=== PATIENT | male | born 1940 | race Caucasian/White ===

== ENCOUNTER 2021-08-15 08:07 | Inpatient (IN) | payer MEDICARE, BC ==
[~2021-08-15] VITALS: Ht 180.3 cm; Wt 96.2 kg
[2021-08-15] MEDS ORDERED: TAMSULOSIN (08:30)
[2021-08-15] MEDS ORDERED: PRAVASTATIN SOD20 MG PO (08:30)
[2021-08-15] MEDS ORDERED: INDERAL20 MG PO (08:30)
[2021-08-15] MEDS ORDERED: FUROSEMIDE20 MG (08:30)
[2021-08-15] MEDS ORDERED: AMIODARONE HCL200 MG PO (08:30)
[2021-08-15] MEDS ORDERED: FLUTICASONE PRO16 GM (08:30)
[2021-08-15] MEDS ORDERED: SPIRONOLACTONE25 MG PO (08:30)
[2021-08-15 08:46] LABS: BASOPHILS # (AUTO) 0.1 (0.0-0.1); BASOPHILS % 0.8 % (0.0-1.0); EOSINOPHILS # (AUTO) 0.2 (0.0-0.4); EOSINOPHILS % 3.2 % (0.0-6.0); HEMATOCRIT 23.5 % (38.2-49.6); LYMPHOCYTES % 15.9 % (18.0-39.1); MEAN CORPUSCULAR HEMOGLOBIN 23.7 pg (28-32); MEAN CORPUSCULAR HGB CONC 28.1 g/dL (31-35); MEAN CORPUSCULAR VOLUME 84.5 fL (81-99); MONOCYTES # (AUTO) 0.8 (0.2-0.8); MONOCYTES % 11.6 % (4.4-11.3); NEUTROPHILS # (AUTO) 4.5 (2.1-6.9); NEUTROPHILS % 68.2 % (38.7-80.0); PLATELET COUNT 332 x10e3/uL (140-360); RED BLOOD COUNT 2.78 x10e6/uL (4.3-5.7); RED CELL DISTRIBUTION WIDTH 15.9 % (11.7-14.4)
[2021-08-15 08:52] LABS: HEMOGLOBIN 6.6 g/dL (14.0-18.0)
[2021-08-15 08:58] LABS: INR 1.05; PROTHROMBIN TIME 14.5 seconds (11.9-14.5)
[2021-08-15 08:59] LABS: PARTIAL THROMBOPLASTIN TIME 31.5 seconds (23.8-35.5)
[2021-08-15] MEDS ORDERED: SODIUM CHLORIDE 0.9% 250ML 250 ML IV ONE (09:00)
[2021-08-15 09:05] LABS: ALBUMIN 3.7 g/dL (3.5-5.0); ALBUMIN/GLOBULIN RATIO 1.1 (0.8-2.0); ANION GAP 15.4 mmol/L (8-16); CALCIUM 9.3 mg/dL (8.4-10.2); CREATININE, SERUM 2.3 mg/dL (0.72-1.25); POTASSIUM 4.4 mmol/L (3.5-5.1)
[2021-08-15 09:28] LABS: CREATINE KINASE MB 1.4 ng/mL (0-5.0)
[2021-08-15] MEDS ORDERED: ONDANSETRON HCL INJ 2MG/ML 2ML 2 MG/ML VIAL IV PRN (09:45)
[2021-08-15 10:00] LABS: BACTERIA,URINE FEW /HPF; CLARITY,URINE CLEAR (CLEAR); COLOR,URINE YELLOW (YELLOW); EPITHELIAL CELLS,URINE FEW /LPF; KETONES,URINE NEGATIVE (NEGATIVE); LEUKOCYTE ESTERASE ,URINE TRACE (NEGATIVE); NITRITE,URINE NEGATIVE (NEGATIVE); PROTEIN,URINE DIPSTICK NEGATIVE (NEGATIVE); RBC,URINE 0-5 /HPF (0-5); URINE UROBILINOGEN 0.2 mg/dL (0.2 - 1)
[2021-08-15] MEDS ORDERED: FUROSEMIDE INJ 10 MG/ML 2 ML VIAL IV PRN (11:00)
[2021-08-15 12:25] VITALS: BP 114/55
[2021-08-15] MEDS ORDERED: XARELTO10 MG PO (12:55)
[2021-08-15] MEDS ORDERED: PRILOSEC OTC20 MG PO (12:55)
[2021-08-15] MEDS ORDERED: ANORO ELLIPTA1 EACH IH (12:55)
[2021-08-15] MEDS ORDERED: GLUCOSAMINE1000 MG PO (12:55)
[2021-08-15] MEDS ORDERED: COQ-10100 MG PO (12:55)
[2021-08-15] MEDS ORDERED: VITAMIN B-121000 MCG PO (12:58)
[2021-08-15] MEDS ORDERED: VITAMIN D3 COM1 EACH PO (12:58)
[2021-08-15] MEDS ORDERED: FISH OIL 1,2001 EACH PO (12:58)
[2021-08-15] MEDS ORDERED: FLAXSEED OIL1000 MG PO (12:58)
[2021-08-15] MEDS ORDERED: VITAMIN C1000 MG PO (12:58)
[2021-08-15 13:34] LABS: FERRITIN 14.93 ng/mL (21.81-274.66)
[2021-08-15 15:43] VITALS: BP 122/65
[2021-08-15 17:53] LABS: HEMATOCRIT 25.7 % (38.2-49.6); HEMOGLOBIN 7.5 g/dL (14.0-18.0)
[2021-08-15 18:15] LABS: CREATINE KINASE MB 1.4 ng/mL (0-5.0)
[2021-08-15 20:00] VITALS: BP 124/63
[2021-08-15 20:34] VITALS: BP 124/63
[2021-08-16] VITALS (7 sets, daily range): BP systolic 120–141; BP diastolic 57–66
[2021-08-16 02:01] LABS: CREATINE KINASE MB 1.3 ng/mL (0-5.0)
[2021-08-16 05:34] LABS: BASOPHILS % 0.6 % (0.0-1.0); EOSINOPHILS # (AUTO) 0.2 (0.0-0.4); EOSINOPHILS % 3.4 % (0.0-6.0); HEMATOCRIT 24.7 % (38.2-49.6); HEMOGLOBIN 7.3 g/dL (14.0-18.0); LYMPHOCYTES # (AUTO) 1.1 (1.0-3.2); LYMPHOCYTES % 16.6 % (18.0-39.1); MEAN CORPUSCULAR HEMOGLOBIN 24.4 pg (28-32); MEAN CORPUSCULAR HGB CONC 29.6 g/dL (31-35); MEAN CORPUSCULAR VOLUME 82.6 fL (81-99); MONOCYTES # (AUTO) 0.9 (0.2-0.8); MONOCYTES % 13.7 % (4.4-11.3); NEUTROPHILS # (AUTO) 4.5 (2.1-6.9); NEUTROPHILS % 65.4 % (38.7-80.0); PLATELET COUNT 263 x10e3/uL (140-360); RED BLOOD COUNT 2.99 x10e6/uL (4.3-5.7); RED CELL DISTRIBUTION WIDTH 16.1 % (11.7-14.4)
[2021-08-16 06:12] LABS: ALBUMIN 3.1 g/dL (3.5-5.0); ANION GAP 7.1 mmol/L (8-16); CALCIUM 8.7 mg/dL (8.4-10.2); CREATININE, SERUM 2.07 mg/dL (0.72-1.25); POTASSIUM 4.1 mmol/L (3.5-5.1)
[2021-08-16] MEDS: CYANOCOBALAMIN INJ 1,000 MCG/ML VIAL IM SCH (09:07)
[2021-08-16] MEDS ORDERED: HEPARIN SOD (PORCINE) 1000 UNIT/ML SDV ONE (09:20)
[2021-08-16] MEDS: IRON SUCROSE 100 MG in SODIUM CHLORIDE 0.9% 100 ML 100 ML IV SCH (09:20)
[2021-08-16] MEDS ORDERED: SODIUM CHLORIDE 0.9% 250ML 250 ML ONE (09:22)
[2021-08-16 17:22] LABS: HEMATOCRIT 29.3 % (38.2-49.6); HEMOGLOBIN 8.4 g/dL (14.0-18.0)
[2021-08-17] VITALS (9 sets, daily range): BP systolic 124–153; BP diastolic 56–82
[2021-08-17] MEDS ORDERED: FLOMAX0.4 MG PO (04:47)
[2021-08-17 06:10] LABS: BASOPHILS # (AUTO) 0.1 (0.0-0.1); BASOPHILS % 0.9 % (0.0-1.0); EOSINOPHILS # (AUTO) 0.2 (0.0-0.4); EOSINOPHILS % 3.8 % (0.0-6.0); HEMATOCRIT 26.2 % (38.2-49.6); HEMOGLOBIN 7.6 g/dL (14.0-18.0); LYMPHOCYTES % 15.4 % (18.0-39.1); MEAN CORPUSCULAR HEMOGLOBIN 24.4 pg (28-32); MONOCYTES # (AUTO) 0.9 (0.2-0.8); MONOCYTES % 13.8 % (4.4-11.3); NEUTROPHILS # (AUTO) 4.2 (2.1-6.9); NEUTROPHILS % 65.8 % (38.7-80.0); PLATELET COUNT 267 x10e3/uL (140-360); RED BLOOD COUNT 3.12 x10e6/uL (4.3-5.7); RED CELL DISTRIBUTION WIDTH 16.9 % (11.7-14.4)
[2021-08-17 06:51] LABS: ANION GAP 6.4 mmol/L (8-16); CALCIUM 8.7 mg/dL (8.4-10.2); CREATININE, SERUM 1.71 mg/dL (0.72-1.25); POTASSIUM 4.4 mmol/L (3.5-5.1)
[2021-08-17] MEDS: CYANOCOBALAMIN INJ 1,000 MCG/ML VIAL IM SCH (09:10)
[2021-08-17] MEDS: IRON SUCROSE 100 MG in SODIUM CHLORIDE 0.9% 100 ML 100 ML IV SCH (09:10)
[2021-08-17] MEDS ORDERED: HEMOCYTE PLUS1 EACH PO (09:50)
[2021-08-17] MEDS: AMIODARONE HCL 200 MG TAB PO SCH (10:18)
[2021-08-17] MEDS: DOCUSATE SODIUM 100 MG CAP PO SCH (10:18)
[2021-08-17] MEDS: SPIRONOLACTONE 25 MG TAB PO SCH (10:18)
[2021-08-17] MEDS: SENNOSIDES 8.6 MG TAB PO SCH (10:18)
[2021-08-17] MEDS: FUROSEMIDE 20 MG TAB PO SCH (10:18)
[2021-08-17] MEDS ORDERED: ONDANSETRON HCL 4 MG ORAL DISINTEGRATING TAB PO PRN (14:45)
[2021-08-17 18:04] LABS: HEMATOCRIT 32.5 % (38.2-49.6); HEMOGLOBIN 9.1 g/dL (14.0-18.0)
[2021-08-17] MEDS ORDERED: TAMSULOSIN HCL 0.4 MG CAP PO SCH (21:00)
[2021-08-17] MEDS ORDERED: PRAVASTATIN 20 MG TAB PO SCH (21:00)
[2021-08-18 05:23] LABS: BASOPHILS # (AUTO) 0.1 (0.0-0.1); EOSINOPHILS # (AUTO) 0.3 (0.0-0.4); EOSINOPHILS % 3.6 % (0.0-6.0); HEMATOCRIT 26.8 % (38.2-49.6); HEMOGLOBIN 7.8 g/dL (14.0-18.0); LYMPHOCYTES # (AUTO) 1.1 (1.0-3.2); LYMPHOCYTES % 13.9 % (18.0-39.1); MEAN CORPUSCULAR HEMOGLOBIN 24.5 pg (28-32); MEAN CORPUSCULAR HGB CONC 29.1 g/dL (31-35); MONOCYTES # (AUTO) 0.9 (0.2-0.8); MONOCYTES % 11.5 % (4.4-11.3); NEUTROPHILS # (AUTO) 5.7 (2.1-6.9); NEUTROPHILS % 69.6 % (38.7-80.0); PLATELET COUNT 273 x10e3/uL (140-360); RED BLOOD COUNT 3.19 x10e6/uL (4.3-5.7); RED CELL DISTRIBUTION WIDTH 17.2 % (11.7-14.4)
[2021-08-18 05:36] LABS: ANION GAP 9.2 mmol/L (8-16); CALCIUM 9.2 mg/dL (8.4-10.2); CREATININE, SERUM 1.84 mg/dL (0.72-1.25); POTASSIUM 4.2 mmol/L (3.5-5.1)
[2021-08-18 05:56] VITALS: BP 129/60
[2021-08-18 06:38] VITALS: BP 129/60
[2021-08-18 08:00] VITALS: BP 129/60
[2021-08-18] MEDS: IRON SUCROSE 100 MG in SODIUM CHLORIDE 0.9% 100 ML 100 ML IV SCH (09:00)
[2021-08-18] MEDS: CYANOCOBALAMIN INJ 1,000 MCG/ML VIAL IM SCH (09:00)
[2021-08-18 09:05] VITALS: BP 124/66
[2021-08-18] MEDS ORDERED: IOPAMIDOL 300MG/ML 100 ML INFUS..BTL IV ONE (11:02)
[2021-08-18] MEDS ORDERED: SODIUM CHLORIDE 0.9% 250ML 250 ML ONE (11:02)
[2021-08-18] MEDS ORDERED: LIDOCAINE HCL 1% LOCAL INJ 20 ML VIAL ONE (11:02)
[2021-08-18] MEDS ORDERED: MIDAZOLAM HCL 2 MG/2 ML VIAL ONE (11:34)
[2021-08-18] MEDS ORDERED: FENTANYL CITRATE/PF 100MCG/2 ML INJ ONE (11:34)
[2021-08-18 11:44] VITALS: BP 146/75
[2021-08-18 13:51] VITALS: BP 138/66
[2021-08-18] MEDS: SENNOSIDES 8.6 MG TAB PO SCH (15:30)
[2021-08-18] MEDS: FUROSEMIDE 20 MG TAB PO SCH (15:30)
[2021-08-18] MEDS: AMIODARONE HCL 200 MG TAB PO SCH (15:30)
[2021-08-18] MEDS: SPIRONOLACTONE 25 MG TAB PO SCH (15:30)
[2021-08-18] MEDS: DOCUSATE SODIUM 100 MG CAP PO SCH (15:30)
[2021-08-23] MEDS ORDERED: DEXAMETHASONE4 MG PO (18:05)
[2021-08-23] MEDS ORDERED: LEVOFLOXACIN250 MG PO (18:05)
== END 2021-08-18 15:35 | disposition home or self-care (01) | DRG 378 ==
LOC: ER 08:19 → ERHOLD 09:44 → MED/SURG2 14:05
PROVIDERS: ADMIT Internal Medicine; ATTEND Internal Medicine
PROC: 30233N1 Transfusion of Nonautologous Red Blood Cells into Peripheral Vein, Percutaneous Approach (ICD-10-PCS; 2021-08-15)
PROC: 06H03DZ Insertion of Intraluminal Device into Inferior Vena Cava, Percutaneous Approach (ICD-10-PCS; principal; 2021-08-18)
DX: K92.2 Gastrointestinal hemorrhage, unspecified (principal); D68.59 Other primary thrombophilia; I13.0 Hypertensive heart and chronic kidney disease with heart failure and stage 1 through stage 4 chronic kidney disease, or unspecified chronic kidney disease; I82.531 Chronic embolism and thrombosis of right popliteal vein; I82.511 Chronic embolism and thrombosis of right femoral vein; D50.9 Iron deficiency anemia, unspecified; I48.0 Paroxysmal atrial fibrillation; Z79.01 Long term (current) use of anticoagulants; J44.9 Chronic obstructive pulmonary disease, unspecified; I50.9 Heart failure, unspecified; N40.0 Benign prostatic hyperplasia without lower urinary tract symptoms; N18.32 Chronic kidney disease, stage 3b; K21.9 Gastro-esophageal reflux disease without esophagitis; E78.5 Hyperlipidemia, unspecified; Z86.718 Personal history of other venous thrombosis and embolism; J84.10 Pulmonary fibrosis, unspecified; R19.5 Other fecal abnormalities; I25.10 Atherosclerotic heart disease of native coronary artery without angina pectoris; Z95.810 Presence of automatic (implantable) cardiac defibrillator; G47.30 Sleep apnea, unspecified
CPT/HCPCS: 36415; 37191; 71045; 74470; 76937; 77002; 78278; 80048; 80053; 81001; 82270; 82550; 82553; 82607; 82728; 82746; 83540; 84466; 84484; 85014; 85018; 85025; 85045; 85610; 85730; 86850; 86900; 86920; 93970; 94799; 99152; 99153; 99284; A9512; J1644; J1756; J1940; J2001; J2250; J3010; J3420; J7050; P9016; Q9967; U0002

== ENCOUNTER 2021-08-19 15:17 | Inpatient (IN) | payer MEDICARE, BC ==
[~2021-08-19] VITALS: Ht 180.3 cm; Wt 86.2 kg
[~2021-08-19 15:17] MED LIST: AMIODARONE HCL200 MG PO; ANORO ELLIPTA1 EACH IH; COQ-10100 MG PO; FISH OIL 1,2001 EACH PO; FLAXSEED OIL1000 MG PO; FLOMAX0.4 MG PO; FLUTICASONE PRO16 GM; FUROSEMIDE20 MG; GLUCOSAMINE1000 MG PO; HEMOCYTE PLUS1 EACH PO; INDERAL20 MG PO; PRAVASTATIN SOD20 MG PO; PRILOSEC OTC20 MG PO; SPIRONOLACTONE25 MG PO; TAMSULOSIN; VITAMIN B-121000 MCG PO; VITAMIN C1000 MG PO; VITAMIN D3 COM1 EACH PO; XARELTO10 MG PO
[2021-08-19 16:19] LABS: BASOPHILS % 0.5 % (0.0-1.0); EOSINOPHILS # (AUTO) 0.1 (0.0-0.4); EOSINOPHILS % 1.5 % (0.0-6.0); HEMATOCRIT 29.9 % (38.2-49.6); HEMOGLOBIN 8.8 g/dL (14.0-18.0); LYMPHOCYTES # (AUTO) 0.4 (1.0-3.2); LYMPHOCYTES % 4.5 % (18.0-39.1); MEAN CORPUSCULAR HEMOGLOBIN 24.6 pg (28-32); MEAN CORPUSCULAR HGB CONC 29.4 g/dL (31-35); MEAN CORPUSCULAR VOLUME 83.5 fL (81-99); MONOCYTES # (AUTO) 1.4 (0.2-0.8); MONOCYTES % 16.3 % (4.4-11.3); NEUTROPHILS # (AUTO) 6.5 (2.1-6.9); NEUTROPHILS % 76.5 % (38.7-80.0); PLATELET COUNT 229 x10e3/uL (140-360); RED BLOOD COUNT 3.58 x10e6/uL (4.3-5.7); RED CELL DISTRIBUTION WIDTH 18.3 % (11.7-14.4)
[2021-08-19 16:25] LABS: INR 1.09; PARTIAL THROMBOPLASTIN TIME 31.3 seconds (23.8-35.5); PROTHROMBIN TIME 14.9 seconds (11.9-14.5)
[2021-08-19 16:33] LABS: CLARITY,URINE HAZY (CLEAR); COLOR,URINE YELLOW (YELLOW); KETONES,URINE NEGATIVE (NEGATIVE); LEUKOCYTE ESTERASE ,URINE TRACE (NEGATIVE); NITRITE,URINE NEGATIVE (NEGATIVE); PROTEIN,URINE DIPSTICK NEGATIVE (NEGATIVE); URINE UROBILINOGEN 0.2 mg/dL (0.2 - 1)
[2021-08-19 16:34] LABS: BACTERIA,URINE FEW /HPF; EPITHELIAL CELLS,URINE FEW /LPF; RBC,URINE 0-5 /HPF (0-5)
[2021-08-19 16:35] LABS: ALBUMIN 3.6 g/dL (3.5-5.0); ALBUMIN/GLOBULIN RATIO 0.9 (0.8-2.0); ANION GAP 13.1 mmol/L (8-16); CALCIUM 9.3 mg/dL (8.4-10.2); CREATININE, SERUM 1.94 mg/dL (0.72-1.25)
[2021-08-19 16:43] LABS: CREATINE KINASE MB 1.6 ng/mL (0-5.0)
[2021-08-19 17:22] LABS: POTASSIUM 5.1 mmol/L (3.5-5.1)
[2021-08-19 17:45] LABS: LYMPHOCYTES % (MANUAL) 5 % (19-48); MONOCYTES % (MANUAL) 17 % (3.4-9.0); NEUTROPHILS % (MANUAL) 78 % (40-74); PLATELET ESTIMATE ADEQUATE; PLATELET MORPHOLOGY COMMENT NORMAL
[2021-08-19] MEDS ORDERED: FUROSEMIDE INJ 10 MG/ML 4 ML VIAL IV ONE (18:15)
[2021-08-19] MEDS ORDERED: ONDANSETRON HCL INJ 2MG/ML 2ML 2 MG/ML VIAL IV PRN (18:45)
[2021-08-19] MEDS ORDERED: ACETAMINOPHEN 325 MG TAB PO PRN (19:15)
[2021-08-19 20:00] VITALS: BP 138/70
[2021-08-19 20:10] VITALS: BP 138/70
[2021-08-19] MEDS: TAMSULOSIN HCL 0.4 MG CAP PO SCH (20:50)
[2021-08-19] MEDS: DEXAMETHASONE SOD PHOS 10 MG/1 ML VIAL IV SCH (20:50)
[2021-08-19 21:44] VITALS: BP 138/70
[2021-08-19 23:58] VITALS: BP 138/70
[2021-08-20] VITALS (14 sets, daily range): BP systolic 114–152; BP diastolic 62–97
[2021-08-20 05:39] LABS: BASOPHILS % 0.3 % (0.0-1.0); HEMATOCRIT 28.3 % (38.2-49.6); HEMOGLOBIN 8.3 g/dL (14.0-18.0); LYMPHOCYTES # (AUTO) 0.3 (1.0-3.2); LYMPHOCYTES % 8.1 % (18.0-39.1); MEAN CORPUSCULAR HEMOGLOBIN 24.3 pg (28-32); MEAN CORPUSCULAR HGB CONC 29.3 g/dL (31-35); MONOCYTES # (AUTO) 0.1 (0.2-0.8); MONOCYTES % 2.4 % (4.4-11.3); NEUTROPHILS # (AUTO) 3.3 (2.1-6.9); NEUTROPHILS % 88.4 % (38.7-80.0); PLATELET COUNT 187 x10e3/uL (140-360); RED BLOOD COUNT 3.41 x10e6/uL (4.3-5.7); RED CELL DISTRIBUTION WIDTH 18.5 % (11.7-14.4)
[2021-08-20 05:58] LABS: ALBUMIN 3.3 g/dL (3.5-5.0); ALBUMIN/GLOBULIN RATIO 0.9 (0.8-2.0); ANION GAP 10.8 mmol/L (8-16); CREATININE, SERUM 2.03 mg/dL (0.72-1.25); POTASSIUM 4.8 mmol/L (3.5-5.1)
[2021-08-20] MEDS ORDERED: SODIUM CHLORIDE 0.9% 250ML 250 ML ONE (08:32)
[2021-08-20] MEDS: CEFEPIME 1 GM in SODIUM CHLORIDE 0.9% 50ML 50 ML IV SCH (08:57)
[2021-08-20] MEDS ORDERED: CYANOCOBALAMIN 100 MCG TAB PO SCH (09:00)
[2021-08-20] MEDS: DEXAMETHASONE SOD PHOS 10 MG/1 ML VIAL IV SCH (09:29)
[2021-08-20] MEDS: AMIODARONE HCL 200 MG TAB PO SCH (09:30)
[2021-08-20] MEDS: ASCORBIC ACID 500 MG TAB PO SCH (09:30)
[2021-08-20] MEDS ORDERED: SODIUM CHLORIDE 0.9% 1000ML 1,000 ML IV SCH (10:30)
[2021-08-20] MEDS ORDERED: FUROSEMIDE INJ 10 MG/ML 4 ML VIAL IV ONE (11:00)
[2021-08-20 14:05] LABS: CREATINE KINASE MB 2.6 ng/mL (0-5.0)
[2021-08-20] MEDS: SODIUM CHLORIDE 0.9% 1000ML 1,000 ML IV SCH ×2 (16:00→22:27)
[2021-08-20] MEDS: FLUTICASONE PROPIONATE NASAL SPRAY NS SCH (17:15)
[2021-08-20] MEDS: PRAVASTATIN 20 MG TAB PO SCH (20:38)
[2021-08-20] MEDS: TAMSULOSIN HCL 0.4 MG CAP PO SCH (20:38)
[2021-08-21] VITALS (7 sets, daily range): BP systolic 116–134; BP diastolic 63–80
[2021-08-21 05:18] LABS: HEMATOCRIT 28.1 % (38.2-49.6); LYMPHOCYTES # (AUTO) 0.4 (1.0-3.2); LYMPHOCYTES % 7.8 % (18.0-39.1); MEAN CORPUSCULAR HGB CONC 28.5 g/dL (31-35); MEAN CORPUSCULAR VOLUME 84.1 fL (81-99); MONOCYTES # (AUTO) 0.7 (0.2-0.8); MONOCYTES % 12.9 % (4.4-11.3); NEUTROPHILS # (AUTO) 4.3 (2.1-6.9); NEUTROPHILS % 78.4 % (38.7-80.0); PLATELET COUNT 194 x10e3/uL (140-360); RED BLOOD COUNT 3.34 x10e6/uL (4.3-5.7); RED CELL DISTRIBUTION WIDTH 18.6 % (11.7-14.4)
[2021-08-21 05:39] LABS: ALBUMIN 3.2 g/dL (3.5-5.0); ANION GAP 16.4 mmol/L (8-16); CALCIUM 8.5 mg/dL (8.4-10.2); CREATININE, SERUM 1.88 mg/dL (0.72-1.25); POTASSIUM 4.4 mmol/L (3.5-5.1)
[2021-08-21] MEDS: VILANTEROL TR INH SCH (06:00)
[2021-08-21] MEDS: DEXAMETHASONE SOD PHOS 10 MG/1 ML VIAL IV SCH (06:00)
[2021-08-21] MEDS: UMECLIDINIUM BRM INH SCH (06:00)
[2021-08-21] MEDS: AMIODARONE HCL 200 MG TAB PO SCH ×2 (09:13→21:41)
[2021-08-21] MEDS: ASCORBIC ACID 500 MG TAB PO SCH (09:13)
[2021-08-21] MEDS: CEFEPIME 1 GM in SODIUM CHLORIDE 0.9% 50ML 50 ML IV SCH (09:13)
[2021-08-21] MEDS: GUAIFENESIN/CODEINE 5 ML LIQD PO PRN ×2 (13:27→22:52)
[2021-08-21] MEDS: FLUTICASONE PROPIONATE NASAL SPRAY NS SCH (17:22)
[2021-08-21] MEDS: PRAVASTATIN 20 MG TAB PO SCH (20:24)
[2021-08-21] MEDS: TAMSULOSIN HCL 0.4 MG CAP PO SCH (20:24)
[2021-08-22 00:41] VITALS: BP 148/75
[2021-08-22 04:37] VITALS: BP_SYST 137; BP_SYST 154; BP_DIAS 74; BP_DIAS 92
[2021-08-22 05:00] LABS: HEMATOCRIT 27.3 % (38.2-49.6); HEMOGLOBIN 8.1 g/dL (14.0-18.0); LYMPHOCYTES # (AUTO) 0.6 (1.0-3.2); LYMPHOCYTES % 8.6 % (18.0-39.1); MEAN CORPUSCULAR HEMOGLOBIN 24.4 pg (28-32); MEAN CORPUSCULAR HGB CONC 29.7 g/dL (31-35); MEAN CORPUSCULAR VOLUME 82.2 fL (81-99); MONOCYTES # (AUTO) 0.8 (0.2-0.8); MONOCYTES % 11.8 % (4.4-11.3); NEUTROPHILS # (AUTO) 5.5 (2.1-6.9); NEUTROPHILS % 79.3 % (38.7-80.0); PLATELET COUNT 190 x10e3/uL (140-360); RED BLOOD COUNT 3.32 x10e6/uL (4.3-5.7); RED CELL DISTRIBUTION WIDTH 18.8 % (11.7-14.4)
[2021-08-22 05:41] LABS: ALBUMIN 3.1 g/dL (3.5-5.0); ALBUMIN/GLOBULIN RATIO 0.9 (0.8-2.0); ANION GAP 13.4 mmol/L (8-16); CALCIUM 8.4 mg/dL (8.4-10.2); CREATININE, SERUM 1.89 mg/dL (0.72-1.25); POTASSIUM 4.4 mmol/L (3.5-5.1)
[2021-08-22] MEDS: DEXAMETHASONE SOD PHOS 10 MG/1 ML VIAL IV SCH (05:42)
[2021-08-22] MEDS: UMECLIDINIUM BRM INH SCH (06:00)
[2021-08-22] MEDS: VILANTEROL TR INH SCH (06:00)
[2021-08-22] MEDS: AMIODARONE HCL 200 MG TAB PO SCH ×2 (08:43→16:50)
[2021-08-22] MEDS: CEFEPIME 1 GM in SODIUM CHLORIDE 0.9% 50ML 50 ML IV SCH (08:43)
[2021-08-22] MEDS: ASCORBIC ACID 500 MG TAB PO SCH (08:44)
[2021-08-22 08:58] VITALS: BP 133/76
[2021-08-22 09:00] VITALS: BP 133/76
[2021-08-22] MEDS ORDERED: CYANOCOBALAMIN 100 MCG TAB PO SCH (09:00)
[2021-08-22] MEDS ORDERED: METOPROLOL TARTRATE 25 MG TAB PO SCH (09:00)
[2021-08-22 12:00] VITALS: BP 157/85
[2021-08-22] MEDS: METOPROLOL TARTRATE 25 MG TAB PO SCH ×2 (13:30→16:50)
[2021-08-22] MEDS: FLUTICASONE PROPIONATE NASAL SPRAY NS SCH (16:30)
[2021-08-22] MEDS ORDERED: AMIODARONE HCL200 MG PO (17:31)
[2021-08-22] MEDS ORDERED: METOPROLOL SUCC25 MG PO (17:31)
[2021-08-22] MEDS ORDERED: DEXAMETHASONE6 MG PEG (18:15)
[2021-08-22] MEDS ORDERED: LEVOFLOXACIN250 MG PO (18:16)
[2021-08-22 18:43] VITALS: BP 131/76
[2021-08-23] MEDS ORDERED: AZITHROMYCIN 250 MG TAB PO SCH (09:00)
[2021-08-23] MEDS ORDERED: DEXAMETHASONE4 MG PO (18:05)
[2021-08-23] MEDS ORDERED: LEVOFLOXACIN250 MG PO (18:05)
== END 2021-08-22 18:50 | disposition home or self-care (01) | DRG 177 ==
LOC: ER 15:45 → ERHOLD 18:50 → IMCU 19:42
PROVIDERS: ADMIT Internal Medicine; ATTEND Internal Medicine
DX: U07.1 COVID-19 (principal); J12.82 Pneumonia due to coronavirus disease 2019; J96.01 Acute respiratory failure with hypoxia; I13.0 Hypertensive heart and chronic kidney disease with heart failure and stage 1 through stage 4 chronic kidney disease, or unspecified chronic kidney disease; D68.59 Other primary thrombophilia; I47.2 Ventricular tachycardia; I50.32 Chronic diastolic (congestive) heart failure; N18.30 Chronic kidney disease, stage 3 unspecified; Z95.828 Presence of other vascular implants and grafts; Z95.810 Presence of automatic (implantable) cardiac defibrillator; Z86.718 Personal history of other venous thrombosis and embolism; I25.2 Old myocardial infarction
CPT/HCPCS: 36415; 71045; 80053; 81001; 82550; 82553; 83605; 83880; 84484; 85025; 85610; 85730; 87040; 87086; 93005; 93306; 94799; 99284; J0456; J0692; J1100; J1940; J7030; J7050; U0002

== ENCOUNTER → 2021-12-28 | Day surgery (SDC) | payer MEDICARE, BC ==
[~2021-12-28] VITALS: Ht 175.3 cm; Wt 89.4 kg
[~2021-12-28] MED LIST changes: +DEXAMETHASONE4 MG PO; +DEXAMETHASONE6 MG PEG; +ELIQUIS5 MG PO; +FENTANYL CITRATE/PF 100MCG/2 ML INJ ONE; +FLONASE ALLERG9.9 ML INH; +HEPARIN SOD (PORCINE) 1000 UNIT/ML 30ML ONE; +HEPARIN SOD/SOD CHLORIDE 2,000 ML ONE; +LEVOFLOXACIN250 MG PO; +LIDOCAINE HCL 1% LOCAL INJ 20 ML VIAL ONE; +METOPROLOL SUCC25 MG PO; +MIDAZOLAM HCL 2 MG/2 ML VIAL ONE; +SODIUM CHLORIDE 0.9% 1000ML 1,000 ML ONE
[2021-12-28 07:19] LABS: BASOPHILS # (AUTO) 0.1 (0.0-0.1); BASOPHILS % 0.9 % (0.0-1.0); EOSINOPHILS # (AUTO) 0.3 (0.0-0.4); EOSINOPHILS % 4.6 % (0.0-6.0); HEMATOCRIT 37.8 % (38.2-49.6); HEMOGLOBIN 11.6 g/dL (14.0-18.0); LYMPHOCYTES # (AUTO) 0.9 (1.0-3.2); LYMPHOCYTES % 15.3 % (18.0-39.1); MEAN CORPUSCULAR HEMOGLOBIN 28.7 pg (28-32); MEAN CORPUSCULAR HGB CONC 30.7 g/dL (31-35); MEAN CORPUSCULAR VOLUME 93.6 fL (81-99); MONOCYTES # (AUTO) 0.6 (0.2-0.8); MONOCYTES % 10.5 % (4.4-11.3); NEUTROPHILS # (AUTO) 3.9 (2.1-6.9); NEUTROPHILS % 68.3 % (38.7-80.0); PLATELET COUNT 213 x10e3/uL (140-360); RED BLOOD COUNT 4.04 x10e6/uL (4.3-5.7); RED CELL DISTRIBUTION WIDTH 15.9 % (11.7-14.4)
[2021-12-28 07:29] LABS: INR 1.05; PROTHROMBIN TIME 14.7 seconds (11.9-14.5)
[2021-12-28 07:36] LABS: ANION GAP 12.4 mmol/L (8-16); CALCIUM 9.1 mg/dL (8.4-10.2); CREATININE, SERUM 2.16 mg/dL (0.72-1.25); POTASSIUM 4.4 mmol/L (3.5-5.1)
[2021-12-28 08:00] VITALS: BP 167/67
[2021-12-28 11:27] VITALS: BP 145/81
[2021-12-28 11:30] VITALS: BP 145/81
[2021-12-28 11:45] VITALS: BP 134/73
[2021-12-28 12:00] VITALS: BP 121/71
[2021-12-28 12:15] VITALS: BP 129/74
== END | disposition home or self-care (01) ==
LOC: CATH LAB 07:11
PROVIDERS: ATTEND Internal Medicine Cardiovascular Disease
DX: I82.403 Acute embolism and thrombosis of unspecified deep veins of lower extremity, bilateral (principal); Z95.810 Presence of automatic (implantable) cardiac defibrillator; I82.409 Acute embolism and thrombosis of unspecified deep veins of unspecified lower extremity; I47.1 Supraventricular tachycardia; I25.2 Old myocardial infarction; I10 Essential (primary) hypertension; E78.00 Pure hypercholesterolemia, unspecified; D68.59 Other primary thrombophilia; J44.9 Chronic obstructive pulmonary disease, unspecified; Z01.812 Encounter for preprocedural laboratory examination; Z20.822 Contact with and (suspected) exposure to COVID-19; Z79.02 Long term (current) use of antithrombotics/antiplatelets; Z79.899 Other long term (current) drug therapy; Z86.16 Personal history of COVID-19
CPT/HCPCS: 36415; 37193; 75825; 76937; 80048; 85025; 85610; C1725; C1769 ×3; J1644; J2001; J2250; J3010; J7030; U0002; 36010; 99152; 99153

== ENCOUNTER → 2022-07-03 | Day surgery (SDC) | payer MEDICARE, BC ==
[2022-07-02 10:55] LABS: BASOPHILS # (AUTO) 0.1 (0.0-0.1); BASOPHILS % 1.1 % (0.0-1.0); EOSINOPHILS # (AUTO) 0.2 (0.0-0.4); EOSINOPHILS % 3.1 % (0.0-6.0); HEMATOCRIT 33.3 % (38.2-49.6); HEMOGLOBIN 9.1 g/dL (14.0-18.0); LYMPHOCYTES % 13.3 % (18.0-39.1); MEAN CORPUSCULAR HEMOGLOBIN 25.1 pg (28-32); MEAN CORPUSCULAR HGB CONC 27.3 g/dL (31-35); MONOCYTES % 13.1 % (4.4-11.3); NEUTROPHILS # (AUTO) 5.1 (2.1-6.9); PLATELET COUNT 239 x10e3/uL (140-360); RED BLOOD COUNT 3.62 x10e6/uL (4.3-5.7); RED CELL DISTRIBUTION WIDTH 17.9 % (11.7-14.4)
[2022-07-02 11:06] LABS: INR 1.03; PROTHROMBIN TIME 14.3 seconds (11.9-14.5)
[2022-07-02 11:15] LABS: ALBUMIN 4.3 g/dL (3.5-5.0); ALBUMIN/GLOBULIN RATIO 1.5 (0.8-2.0); ANION GAP 17.6 mmol/L (8-16); CALCIUM 9.1 mg/dL (8.4-10.2); CREATININE, SERUM 2.78 mg/dL (0.72-1.25); POTASSIUM 4.6 mmol/L (3.5-5.1)
[2022-07-03] VITALS (12 sets, daily range): BP systolic 101–175; BP diastolic 50–75
[~2022-07-03] VITALS: Ht 175.3 cm; Wt 89.4 kg
[~2022-07-03] MED LIST changes: +ASPIRIN 325 MG TAB ONE; +CLOPIDOGREL BISULFATE 75 MG TAB ONE; +IOPAMIDOL 370 MG/ML 100 ML INFUS..BTL INJ ONE; -LIDOCAINE HCL 1% LOCAL INJ 20 ML VIAL ONE; +LIDOCAINE HCL 2% LOCAL INJ 5 ML SDV VIAL INJ ONE; +NITROGLYCERIN/D5W 200 MCG/ML 250 ML ONE; +VERAPAMIL HCL 2.5 MG/ML 2 ML VIAL ONE
== END | disposition home or self-care (01) ==
LOC: CATH LAB 07:20
PROVIDERS: ATTEND Internal Medicine Cardiovascular Disease
DX: I25.10 Atherosclerotic heart disease of native coronary artery without angina pectoris (principal); R94.39 Abnormal result of other cardiovascular function study; R79.89 Other specified abnormal findings of blood chemistry; I10 Essential (primary) hypertension; I82.409 Acute embolism and thrombosis of unspecified deep veins of unspecified lower extremity; I47.1 Supraventricular tachycardia; D68.59 Other primary thrombophilia; E78.00 Pure hypercholesterolemia, unspecified; J44.9 Chronic obstructive pulmonary disease, unspecified; I25.2 Old myocardial infarction; D68.9 Coagulation defect, unspecified; Z01.812 Encounter for preprocedural laboratory examination; Z79.02 Long term (current) use of antithrombotics/antiplatelets; Z79.899 Other long term (current) drug therapy; Z95.810 Presence of automatic (implantable) cardiac defibrillator; Z86.16 Personal history of COVID-19
CPT/HCPCS: 36415; 80053; 85025; 85610; C1725; C1760; C1769; C1874; C1894 ×2; C9600; J1644; J2001; J2250; J3010; J7030; Q9967; 92928; 93458

== ENCOUNTER 2022-08-14 12:28 | Inpatient (IN) | payer MEDICARE, BC ==
[~2022-08-14] VITALS: Ht 180.3 cm; Wt 87.1 kg
[~2022-08-14 12:28] MED LIST changes: +AMIODARONE HCL400 MG PO; -ASPIRIN 325 MG TAB ONE; -CLOPIDOGREL BISULFATE 75 MG TAB ONE; +ELIQUIS2.5 MG PO; -FENTANYL CITRATE/PF 100MCG/2 ML INJ ONE; +FISH OIL OMEGA1 EACH PO; +FUROSEMIDE40 MG PO; -HEPARIN SOD (PORCINE) 1000 UNIT/ML 30ML ONE; -HEPARIN SOD/SOD CHLORIDE 2,000 ML ONE; -IOPAMIDOL 370 MG/ML 100 ML INFUS..BTL INJ ONE; -LIDOCAINE HCL 2% LOCAL INJ 5 ML SDV VIAL INJ ONE; -MIDAZOLAM HCL 2 MG/2 ML VIAL ONE; -NITROGLYCERIN/D5W 200 MCG/ML 250 ML ONE; +PLAVIX75 MG PO; -SODIUM CHLORIDE 0.9% 1000ML 1,000 ML ONE; +STOOL SOFTENER100 MG PO; +TAMSULOSIN PO; -VERAPAMIL HCL 2.5 MG/ML 2 ML VIAL ONE; +VITAMIN D350 MCG PO; +ZINC PO
[2022-08-14 13:30] LABS: BASOPHILS # (AUTO) 0.1 (0.0-0.1); BASOPHILS % 0.6 % (0.0-1.0); EOSINOPHILS # (AUTO) 0.2 (0.0-0.4); EOSINOPHILS % 2.6 % (0.0-6.0); HEMATOCRIT 20.9 % (38.2-49.6); LYMPHOCYTES # (AUTO) 0.8 (1.0-3.2); LYMPHOCYTES % 9.5 % (18.0-39.1); MEAN CORPUSCULAR HEMOGLOBIN 25.2 pg (28-32); MEAN CORPUSCULAR HGB CONC 29.7 g/dL (31-35); MONOCYTES % 11.7 % (4.4-11.3); NEUTROPHILS # (AUTO) 6.1 (2.1-6.9); PLATELET COUNT 349 x10e3/uL (140-360); RED BLOOD COUNT 2.46 x10e6/uL (4.3-5.7); RED CELL DISTRIBUTION WIDTH 17.6 % (11.7-14.4)
[2022-08-14 13:34] LABS: HEMOGLOBIN 6.2 g/dL (14.0-18.0)
[2022-08-14 13:38] LABS: CLARITY,URINE CLEAR (CLEAR); COLOR,URINE YELLOW (YELLOW); KETONES,URINE NEGATIVE (NEGATIVE); LEUKOCYTE ESTERASE ,URINE NEGATIVE (NEGATIVE); NITRITE,URINE NEGATIVE (NEGATIVE); PROTEIN,URINE DIPSTICK NEGATIVE (NEGATIVE); URINE UROBILINOGEN 0.2 mg/dL (0.2 - 1)
[2022-08-14 13:39] LABS: BACTERIA,URINE RARE /HPF; EPITHELIAL CELLS,URINE RARE /LPF; RBC,URINE 0-5 /HPF (0-5); WBC,URINE (MAN) 0-5 /HPF (0-5)
[2022-08-14 13:43] LABS: ALBUMIN 3.4 g/dL (3.5-5.0); ANION GAP 15.4 mmol/L (8-16); CREATININE, SERUM 3.37 mg/dL (0.72-1.25); POTASSIUM 4.4 mmol/L (3.5-5.1)
[2022-08-14 13:44] LABS: ALBUMIN/GLOBULIN RATIO 1.1 (0.8-2.0)
[2022-08-14] MEDS ORDERED: SODIUM CHLORIDE 0.9% 250ML 250 ML IV ONE ×2 (13:45→20:00)
[2022-08-14 15:58] LABS: HYPOCHROMASIA SLIGHT; PLATELET ESTIMATE ADEQUATE; PLATELET MORPHOLOGY COMMENT NORMAL; RBC MORPHOLOGY COMMENT NORMAL
[2022-08-14 17:48] VITALS: BP 113/56
[2022-08-14] MEDS ORDERED: ACETAMINOPHEN 325 MG TAB PO PRN (19:30)
[2022-08-14] MEDS ORDERED: ONDANSETRON HCL INJ 2MG/ML 2ML 2 MG/ML VIAL IV PRN (19:30)
[2022-08-14 20:00] VITALS: BP 113/56
[2022-08-14] MEDS: PRAVASTATIN 20 MG TAB PO SCH (21:29)
[2022-08-14] MEDS: TAMSULOSIN HCL 0.4 MG CAP PO SCH (21:29)
[2022-08-14 21:52] VITALS: BP 102/62
[2022-08-15] VITALS (9 sets, daily range): BP systolic 119–146; BP diastolic 55–72
[2022-08-15] MEDS ORDERED: SODIUM CHLORIDE 0.9% 250ML 250 ML ONE (01:05)
[2022-08-15 05:36] LABS: BASOPHILS % 0.7 % (0.0-1.0); EOSINOPHILS # (AUTO) 0.2 (0.0-0.4); EOSINOPHILS % 3.7 % (0.0-6.0); HEMATOCRIT 24.7 % (38.2-49.6); HEMOGLOBIN 7.2 g/dL (14.0-18.0); LYMPHOCYTES # (AUTO) 0.8 (1.0-3.2); LYMPHOCYTES % 13.8 % (18.0-39.1); MEAN CORPUSCULAR HEMOGLOBIN 26.2 pg (28-32); MEAN CORPUSCULAR HGB CONC 29.1 g/dL (31-35); MEAN CORPUSCULAR VOLUME 89.8 fL (81-99); MONOCYTES # (AUTO) 0.6 (0.2-0.8); NEUTROPHILS # (AUTO) 4.1 (2.1-6.9); NEUTROPHILS % 70.5 % (38.7-80.0); PLATELET COUNT 259 x10e3/uL (140-360); RED BLOOD COUNT 2.75 x10e6/uL (4.3-5.7); RED CELL DISTRIBUTION WIDTH 16.7 % (11.7-14.4)
[2022-08-15 06:06] LABS: ANION GAP 16.7 mmol/L (8-16); CALCIUM 8.6 mg/dL (8.4-10.2); CREATININE, SERUM 3.06 mg/dL (0.72-1.25); POTASSIUM 4.7 mmol/L (3.5-5.1)
[2022-08-15 06:33] LABS: FERRITIN 17.01 ng/mL (21.81-274.66)
[2022-08-15] MEDS ORDERED: FUROSEMIDE 20 MG TAB PO SCH (09:00)
[2022-08-15] MEDS: SENNOSIDES 8.6 MG TAB PO SCH (09:09)
[2022-08-15] MEDS: AMIODARONE HCL 200 MG TAB PO SCH ×2 (09:10→16:00)
[2022-08-15] MEDS: DOCUSATE SODIUM 100 MG CAP PO SCH (09:10)
[2022-08-15] MEDS: SPIRONOLACTONE 25 MG TAB PO SCH (09:11)
[2022-08-15 10:12] LABS: HEMATOCRIT 27.1 % (38.2-49.6); HEMOGLOBIN 7.9 g/dL (14.0-18.0)
[2022-08-15] MEDS ORDERED: SODIUM FERRIC GLUCONATE COMPLX 125 MG in SODIUM CHLORIDE 0.9% 100 ML IV ONE (12:30)
[2022-08-15] MEDS ORDERED: FUROSEMIDE INJ 10 MG/ML 4 ML VIAL IV ONE (12:45)
[2022-08-15] MEDS ORDERED: ALBUTEROL/IPRATROPIUM 3 ML NEB NEB PRN (12:45)
[2022-08-15 14:06] LABS: INR 1.03; PROTHROMBIN TIME 13.7 seconds (11.9-14.5)
[2022-08-15] MEDS ORDERED: AZITHROMYCIN 250 MG TAB PO ONE (18:00)
[2022-08-15] MEDS ORDERED: CYANOCOBALAMIN INJ 1,000 MCG/ML VIAL IM ONE (20:15)
[2022-08-15] MEDS: TAMSULOSIN HCL 0.4 MG CAP PO SCH (21:38)
[2022-08-15] MEDS: PRAVASTATIN 20 MG TAB PO SCH (21:38)
[2022-08-16] VITALS (7 sets, daily range): BP systolic 121–125; BP diastolic 56–67
[2022-08-16 05:11] LABS: BASOPHILS # (AUTO) 0.1 (0.0-0.1); BASOPHILS % 0.8 % (0.0-1.0); EOSINOPHILS # (AUTO) 0.3 (0.0-0.4); EOSINOPHILS % 4.7 % (0.0-6.0); HEMATOCRIT 25.8 % (38.2-49.6); HEMOGLOBIN 7.5 g/dL (14.0-18.0); LYMPHOCYTES # (AUTO) 0.9 (1.0-3.2); LYMPHOCYTES % 14.3 % (18.0-39.1); MEAN CORPUSCULAR HEMOGLOBIN 26.2 pg (28-32); MEAN CORPUSCULAR HGB CONC 29.1 g/dL (31-35); MEAN CORPUSCULAR VOLUME 90.2 fL (81-99); MONOCYTES # (AUTO) 0.7 (0.2-0.8); MONOCYTES % 10.8 % (4.4-11.3); NEUTROPHILS # (AUTO) 4.4 (2.1-6.9); NEUTROPHILS % 68.9 % (38.7-80.0); PLATELET COUNT 270 x10e3/uL (140-360); RED BLOOD COUNT 2.86 x10e6/uL (4.3-5.7); RED CELL DISTRIBUTION WIDTH 17.2 % (11.7-14.4)
[2022-08-16 05:41] LABS: ANION GAP 16.4 mmol/L (8-16); CALCIUM 8.7 mg/dL (8.4-10.2); CREATININE, SERUM 2.92 mg/dL (0.72-1.25); MAGNESIUM 2.1 MG/DL (1.3-2.1); POTASSIUM 4.4 mmol/L (3.5-5.1)
[2022-08-16] MEDS ORDERED: PROPOFOL IV EMULSION 50 ML IV ONE (07:21)
[2022-08-16] MEDS: CYANOCOBALAMIN INJ 1,000 MCG/ML VIAL IM SCH (08:59)
[2022-08-16] MEDS: SENNOSIDES 8.6 MG TAB PO SCH (09:00)
[2022-08-16] MEDS: DOCUSATE SODIUM 100 MG CAP PO SCH (09:00)
[2022-08-16] MEDS: AMIODARONE HCL 200 MG TAB PO SCH ×2 (09:00→16:08)
[2022-08-16] MEDS ORDERED: ALBUTEROL SULF 0.083% NEB SOLN 3 ML NEB ONE (11:09)
[2022-08-16] MEDS ORDERED: ONDANSETRON HCL 4 MG ORAL DISINTEGRATING TAB PO PRN (11:30)
[2022-08-16] MEDS ORDERED: POVIDONE IODINE 0.05% 0.05 % ML PO ONE (12:25)
[2022-08-16] MEDS ORDERED: PHENYLEPHRINE HCL 1% 10 MG/ML VIAL ONE (12:25)
[2022-08-16] MEDS ORDERED: PROPOFOL IV EMULSION 10 MG/ML 20 ML VIAL ONE (12:25)
[2022-08-16] MEDS ORDERED: ETOMIDATE 2 MG/ML 10 ML INJ IV ONE (12:25)
[2022-08-16] MEDS ORDERED: LIDOCAINE HCL 2% LOCAL INJ 5 ML SDV VIAL INJ ONE (12:25)
[2022-08-16] MEDS ORDERED: ONDANSETRON HCL INJ 2MG/ML 2ML 2 MG/ML VIAL ONE (12:25)
[2022-08-16] MEDS ORDERED: SODIUM FERRIC GLUCONATE COMPLX 125 MG in SODIUM CHLORIDE 0.9% 100 ML IV ONE (13:00)
[2022-08-16] MEDS: AZITHROMYCIN 250 MG TAB PO SCH (13:57)
[2022-08-16] MEDS: SPIRONOLACTONE 25 MG TAB PO SCH (13:58)
[2022-08-16] MEDS: FUROSEMIDE 40 MG TAB PO SCH (13:58)
[2022-08-16] MEDS: TAMSULOSIN HCL 0.4 MG CAP PO SCH (21:09)
[2022-08-16] MEDS: PRAVASTATIN 20 MG TAB PO SCH (21:09)
[2022-08-17] MEDS: IPRATROPIUM BROMIDE 0.02% 2.5 ML NEB NEB SCH ×2 (00:30→07:24)
[2022-08-17 04:00] VITALS: BP 117/58
[2022-08-17 05:07] LABS: BASOPHILS % 0.5 % (0.0-1.0); EOSINOPHILS # (AUTO) 0.3 (0.0-0.4); EOSINOPHILS % 4.1 % (0.0-6.0); HEMATOCRIT 27.5 % (38.2-49.6); LYMPHOCYTES # (AUTO) 0.6 (1.0-3.2); LYMPHOCYTES % 8.1 % (18.0-39.1); MEAN CORPUSCULAR HEMOGLOBIN 26.4 pg (28-32); MEAN CORPUSCULAR HGB CONC 29.1 g/dL (31-35); MEAN CORPUSCULAR VOLUME 90.8 fL (81-99); MONOCYTES # (AUTO) 0.8 (0.2-0.8); MONOCYTES % 10.2 % (4.4-11.3); NEUTROPHILS # (AUTO) 5.9 (2.1-6.9); NEUTROPHILS % 76.7 % (38.7-80.0); PLATELET COUNT 283 x10e3/uL (140-360); RED BLOOD COUNT 3.03 x10e6/uL (4.3-5.7); RED CELL DISTRIBUTION WIDTH 17.6 % (11.7-14.4)
[2022-08-17 05:35] LABS: ALBUMIN 3.2 g/dL (3.5-5.0); ALBUMIN/GLOBULIN RATIO 1.1 (0.8-2.0); ANION GAP 15.6 mmol/L (8-16); CALCIUM 8.7 mg/dL (8.4-10.2); CREATININE, SERUM 2.87 mg/dL (0.72-1.25); MAGNESIUM 2.1 MG/DL (1.3-2.1); POTASSIUM 4.6 mmol/L (3.5-5.1)
[2022-08-17 08:31] VITALS: BP 124/65
[2022-08-17] MEDS ORDERED: POTASSIUM CHLO10 ME1 PO (08:33)
[2022-08-17] MEDS ORDERED: AZITHROMYCIN250 MG PO (08:33)
[2022-08-17] MEDS ORDERED: FUROSEMIDE40 MG PO (08:33)
[2022-08-17 08:55] VITALS: BP 124/65
[2022-08-17] MEDS ORDERED: PANTOPRAZOLE SO40 MG PO (09:00)
[2022-08-17] MEDS ORDERED: IPRAT-ALBUT 0.5-3 ML NEB (09:00)
[2022-08-17] MEDS: AMIODARONE HCL 200 MG TAB PO SCH (10:27)
[2022-08-17] MEDS: DOCUSATE SODIUM 100 MG CAP PO SCH (10:28)
[2022-08-17] MEDS: SENNOSIDES 8.6 MG TAB PO SCH (10:28)
[2022-08-17] MEDS: AZITHROMYCIN 250 MG TAB PO SCH (10:28)
[2022-08-17] MEDS: CYANOCOBALAMIN INJ 1,000 MCG/ML VIAL IM SCH (10:28)
[2022-08-17] MEDS: SPIRONOLACTONE 25 MG TAB PO SCH (10:28)
[2022-08-17] MEDS: FUROSEMIDE 40 MG TAB PO SCH (10:28)
== END 2022-08-17 10:54 | disposition home or self-care (01) | DRG 377 ==
LOC: ER 12:32 → ERHOLD 13:40 → MED/SURG 17:07
PROVIDERS: ADMIT Internal Medicine; ATTEND Internal Medicine
PROC: 30233N1 Transfusion of Nonautologous Red Blood Cells into Peripheral Vein, Percutaneous Approach (ICD-10-PCS; 2022-08-15)
PROC: 0W3P8ZZ Control Bleeding in Gastrointestinal Tract, Via Natural or Artificial Opening Endoscopic (ICD-10-PCS; principal; 2022-08-16 11:50)
PROC: 0DB78ZX Excision of Stomach, Pylorus, Via Natural or Artificial Opening Endoscopic, Diagnostic (ICD-10-PCS; 2022-08-16 11:50)
DX: K55.21 Angiodysplasia of colon with hemorrhage (principal); I50.33 Acute on chronic diastolic (congestive) heart failure; J96.01 Acute respiratory failure with hypoxia; K20.91 Esophagitis, unspecified with bleeding; I13.0 Hypertensive heart and chronic kidney disease with heart failure and stage 1 through stage 4 chronic kidney disease, or unspecified chronic kidney disease; N18.4 Chronic kidney disease, stage 4 (severe); N17.9 Acute kidney failure, unspecified; D68.59 Other primary thrombophilia; K29.71 Gastritis, unspecified, with bleeding; I25.10 Atherosclerotic heart disease of native coronary artery without angina pectoris; Z95.1 Presence of aortocoronary bypass graft; Z86.718 Personal history of other venous thrombosis and embolism; Z79.01 Long term (current) use of anticoagulants; J44.9 Chronic obstructive pulmonary disease, unspecified; Z86.711 Personal history of pulmonary embolism; E78.5 Hyperlipidemia, unspecified; Z86.74 Personal history of sudden cardiac arrest; G47.33 Obstructive sleep apnea (adult) (pediatric); D50.9 Iron deficiency anemia, unspecified; Z95.0 Presence of cardiac pacemaker; J40 Bronchitis, not specified as acute or chronic; K31.9 Disease of stomach and duodenum, unspecified; K31.819 Angiodysplasia of stomach and duodenum without bleeding
CPT/HCPCS: 36415; 43239; 43270; 70450; 71045; 76770; 78580; 80048; 80053; 81001; 82270; 82607; 82728; 82746; 83540; 83615; 83735; 83880; 84466; 84484; 85014; 85018; 85025; 85045; 85379; 85610; 86850; 86900; 86920; 88304; 88305; 88312; 88342; 93005; 93970; 94640; 94660; 94799; 99252; 99284; A9540; J1940; J2001; J2370; J2405; J2916; J3420; J7050; P9016

== ENCOUNTER 2022-09-18 10:57 | Inpatient (IN) | payer MEDICARE, BC ==
[~2022-09-18] VITALS: Ht 180.3 cm; Wt 87.1 kg
[~2022-09-18 10:57] MED LIST changes: +AZITHROMYCIN250 MG PO; +IPRAT-ALBUT 0.5-3 ML NEB; +PANTOPRAZOLE SO40 MG PO; +POTASSIUM CHLO10 ME1 PO
[2022-09-18 12:27] LABS: BASOPHILS # (AUTO) 0.1 (0.0-0.1); BASOPHILS % 0.8 % (0.0-1.0); EOSINOPHILS # (AUTO) 0.1 (0.0-0.4); HEMATOCRIT 19.9 % (38.2-49.6); LYMPHOCYTES # (AUTO) 0.8 (1.0-3.2); LYMPHOCYTES % 12.5 % (18.0-39.1); MEAN CORPUSCULAR HGB CONC 29.1 g/dL (31-35); MEAN CORPUSCULAR VOLUME 85.8 fL (81-99); MONOCYTES # (AUTO) 0.9 (0.2-0.8); MONOCYTES % 14.2 % (4.4-11.3); NEUTROPHILS # (AUTO) 4.6 (2.1-6.9); NEUTROPHILS % 69.9 % (38.7-80.0); PLATELET COUNT 293 x10e3/uL (140-360); RED BLOOD COUNT 2.32 x10e6/uL (4.3-5.7); RED CELL DISTRIBUTION WIDTH 18.4 % (11.7-14.4)
[2022-09-18 12:36] LABS: HEMOGLOBIN 5.8 g/dL (14.0-18.0)
[2022-09-18 12:57] LABS: ALBUMIN 3.5 g/dL (3.5-5.0); ALBUMIN/GLOBULIN RATIO 1.1 (0.8-2.0); ANION GAP 15.7 mmol/L (8-16); CREATININE, SERUM 3.33 mg/dL (0.72-1.25); POTASSIUM 4.7 mmol/L (3.5-5.1)
[2022-09-18] MEDS ORDERED: PROPOFOL IV EMULSION 10 MG/ML 20 ML VIAL ONE (13:14)
[2022-09-18] MEDS ORDERED: LIDOCAINE HCL 2% LOCAL INJ 5 ML SDV VIAL INJ ONE (13:14)
[2022-09-18] MEDS ORDERED: SODIUM CHLORIDE FLUSH 10 ML SYR INJ PRN (13:15)
[2022-09-18] MEDS ORDERED: SODIUM CHLORIDE 0.9% 250ML 250 ML IV ONE ×2 (13:15→21:45)
[2022-09-18] MEDS ORDERED: SODIUM CHLORIDE 0.9% 500ML 500 ML IV ONE (13:15)
[2022-09-18] MEDS ORDERED: ONDANSETRON HCL INJ 2MG/ML 2ML 2 MG/ML VIAL IV PRN (13:15)
[2022-09-18 20:17] LABS: FERRITIN 24.26 ng/mL (21.81-274.66)
[2022-09-18 21:22] LABS: HEMATOCRIT 23.1 % (38.2-49.6)
[2022-09-18] MEDS ORDERED: FUROSEMIDE INJ 10 MG/ML 4 ML VIAL IV ONE (22:15)
[2022-09-18] MEDS ORDERED: ALBUTEROL/IPRATROPIUM 3 ML NEB NEB PRN (22:15)
[2022-09-18 22:30] VITALS: BP 127/58
[2022-09-18 22:35] VITALS: BP 127/58
[2022-09-18] MEDS: AMIODARONE HCL 200 MG TAB PO SCH (23:23)
[2022-09-18] MEDS: PRAVASTATIN 20 MG TAB PO SCH (23:23)
[2022-09-18] MEDS: ACETAMINOPHEN 325 MG TAB PO PRN (23:24)
[2022-09-18] MEDS: TAMSULOSIN HCL 0.4 MG CAP PO SCH (23:24)
[2022-09-19] VITALS (8 sets, daily range): BP systolic 107–168; BP diastolic 59–73
[2022-09-19] MEDS ORDERED: SODIUM CHLORIDE 0.9% 250ML 250 ML ONE (01:04)
[2022-09-19 06:47] LABS: BASOPHILS # (AUTO) 0.1 (0.0-0.1); BASOPHILS % 1.1 % (0.0-1.0); EOSINOPHILS # (AUTO) 0.1 (0.0-0.4); EOSINOPHILS % 2.5 % (0.0-6.0); HEMATOCRIT 25.5 % (38.2-49.6); LYMPHOCYTES % 17.1 % (18.0-39.1); MEAN CORPUSCULAR HEMOGLOBIN 26.7 pg (28-32); MEAN CORPUSCULAR HGB CONC 31.4 g/dL (31-35); MONOCYTES # (AUTO) 0.7 (0.2-0.8); MONOCYTES % 13.2 % (4.4-11.3); NEUTROPHILS # (AUTO) 3.7 (2.1-6.9); NEUTROPHILS % 65.6 % (38.7-80.0); PLATELET COUNT 204 x10e3/uL (140-360); RED CELL DISTRIBUTION WIDTH 16.3 % (11.7-14.4)
[2022-09-19 07:05] LABS: ANION GAP 12.5 mmol/L (8-16); CALCIUM 8.4 mg/dL (8.4-10.2); CREATININE, SERUM 2.83 mg/dL (0.72-1.25); POTASSIUM 4.5 mmol/L (3.5-5.1)
[2022-09-19] MEDS: SENNOSIDES 8.6 MG TAB PO SCH (09:00)
[2022-09-19] MEDS: DOCUSATE SODIUM 100 MG CAP PO SCH (09:00)
[2022-09-19] MEDS: AMIODARONE HCL 200 MG TAB PO SCH ×2 (10:05→16:53)
[2022-09-19] MEDS: IRON SUCROSE 100 MG in SODIUM CHLORIDE 0.9% 100 ML IV SCH (10:06)
[2022-09-19] MEDS: PRAVASTATIN 20 MG TAB PO SCH (21:59)
[2022-09-19] MEDS: TAMSULOSIN HCL 0.4 MG CAP PO SCH (21:59)
[2022-09-20] VITALS (9 sets, daily range): BP systolic 114–149; BP diastolic 57–70
[2022-09-20 06:02] LABS: BASOPHILS # (AUTO) 0.1 (0.0-0.1); BASOPHILS % 0.8 % (0.0-1.0); EOSINOPHILS # (AUTO) 0.2 (0.0-0.4); EOSINOPHILS % 3.1 % (0.0-6.0); HEMATOCRIT 25.4 % (38.2-49.6); LYMPHOCYTES # (AUTO) 0.6 (1.0-3.2); LYMPHOCYTES % 9.2 % (18.0-39.1); MEAN CORPUSCULAR HEMOGLOBIN 26.9 pg (28-32); MEAN CORPUSCULAR HGB CONC 31.5 g/dL (31-35); MEAN CORPUSCULAR VOLUME 85.5 fL (81-99); MONOCYTES # (AUTO) 0.8 (0.2-0.8); MONOCYTES % 12.7 % (4.4-11.3); NEUTROPHILS # (AUTO) 4.5 (2.1-6.9); NEUTROPHILS % 73.9 % (38.7-80.0); PLATELET COUNT 219 x10e3/uL (140-360); RED BLOOD COUNT 2.97 x10e6/uL (4.3-5.7); RED CELL DISTRIBUTION WIDTH 16.6 % (11.7-14.4)
[2022-09-20 06:30] LABS: ALBUMIN/GLOBULIN RATIO 1.1 (0.8-2.0); ANION GAP 13.4 mmol/L (8-16); CALCIUM 8.8 mg/dL (8.4-10.2); CREATININE, SERUM 2.75 mg/dL (0.72-1.25); MAGNESIUM 2.2 MG/DL (1.3-2.1); POTASSIUM 4.4 mmol/L (3.5-5.1)
[2022-09-20] MEDS: DOCUSATE SODIUM 100 MG CAP PO SCH (08:49)
[2022-09-20] MEDS: AMIODARONE HCL 200 MG TAB PO SCH ×2 (08:49→16:32)
[2022-09-20] MEDS: SENNOSIDES 8.6 MG TAB PO SCH (08:49)
[2022-09-20] MEDS: IRON SUCROSE 100 MG in SODIUM CHLORIDE 0.9% 100 ML IV SCH (10:06)
[2022-09-20 16:52] LABS: HEMATOCRIT 28.1 % (38.2-49.6); HEMOGLOBIN 8.6 g/dL (14.0-18.0)
[2022-09-20] MEDS: TAMSULOSIN HCL 0.4 MG CAP PO SCH (20:13)
[2022-09-20] MEDS: PRAVASTATIN 20 MG TAB PO SCH (20:13)
[2022-09-20] MEDS: ACETAMINOPHEN 325 MG TAB PO PRN (20:16)
[2022-09-21 01:21] VITALS: BP 122/60
[2022-09-21 04:00] VITALS: BP 134/79
[2022-09-21 06:24] LABS: BASOPHILS # (AUTO) 0.1 (0.0-0.1); BASOPHILS % 0.7 % (0.0-1.0); EOSINOPHILS # (AUTO) 0.2 (0.0-0.4); EOSINOPHILS % 2.6 % (0.0-6.0); HEMATOCRIT 27.8 % (38.2-49.6); HEMOGLOBIN 8.4 g/dL (14.0-18.0); LYMPHOCYTES # (AUTO) 0.7 (1.0-3.2); LYMPHOCYTES % 10.3 % (18.0-39.1); MEAN CORPUSCULAR HEMOGLOBIN 26.3 pg (28-32); MEAN CORPUSCULAR HGB CONC 30.2 g/dL (31-35); MEAN CORPUSCULAR VOLUME 87.1 fL (81-99); MONOCYTES # (AUTO) 0.9 (0.2-0.8); NEUTROPHILS # (AUTO) 5.2 (2.1-6.9); PLATELET COUNT 244 x10e3/uL (140-360); RED BLOOD COUNT 3.19 x10e6/uL (4.3-5.7); RED CELL DISTRIBUTION WIDTH 17.2 % (11.7-14.4)
[2022-09-21 06:48] LABS: ANION GAP 14.7 mmol/L (8-16); CALCIUM 8.6 mg/dL (8.4-10.2); CREATININE, SERUM 2.49 mg/dL (0.72-1.25); POTASSIUM 4.7 mmol/L (3.5-5.1)
[2022-09-21 08:12] VITALS: BP 139/67
[2022-09-21 08:35] VITALS: BP 139/67
[2022-09-21] MEDS: DOCUSATE SODIUM 100 MG CAP PO SCH (09:31)
[2022-09-21] MEDS: IRON SUCROSE 100 MG in SODIUM CHLORIDE 0.9% 100 ML IV SCH (09:31)
[2022-09-21] MEDS: SENNOSIDES 8.6 MG TAB PO SCH (09:31)
[2022-09-21] MEDS: AMIODARONE HCL 200 MG TAB PO SCH (09:31)
[2022-09-21] MEDS: ACETAMINOPHEN 325 MG TAB PO PRN (09:41)
[2022-09-21] MEDS ORDERED: PANTOPRAZOLE SO40 MG PO (11:19)
[2022-09-21 11:44] VITALS: BP 127/62
[2022-09-21] MEDS ORDERED: ONDANSETRON HCL 4 MG ORAL DISINTEGRATING TAB PO PRN (11:45)
== END 2022-09-21 12:41 | disposition home or self-care (01) | DRG 299 ==
LOC: ER 11:22 → ERHOLD 13:07 → MED/SURG3 22:11
PROVIDERS: ADMIT Internal Medicine; ATTEND Internal Medicine
PROC: 30233N1 Transfusion of Nonautologous Red Blood Cells into Peripheral Vein, Percutaneous Approach (ICD-10-PCS; principal; 2022-09-18)
PROC: 0D598ZZ Destruction of Duodenum, Via Natural or Artificial Opening Endoscopic (ICD-10-PCS; 2022-09-20)
DX: Q27.39 Arteriovenous malformation, other site (principal); I50.33 Acute on chronic diastolic (congestive) heart failure; D62 Acute posthemorrhagic anemia; I13.0 Hypertensive heart and chronic kidney disease with heart failure and stage 1 through stage 4 chronic kidney disease, or unspecified chronic kidney disease; N17.9 Acute kidney failure, unspecified; D68.59 Other primary thrombophilia; N18.4 Chronic kidney disease, stage 4 (severe); J44.9 Chronic obstructive pulmonary disease, unspecified; I48.91 Unspecified atrial fibrillation; Z79.01 Long term (current) use of anticoagulants; I25.10 Atherosclerotic heart disease of native coronary artery without angina pectoris; D63.1 Anemia in chronic kidney disease; M19.90 Unspecified osteoarthritis, unspecified site; N40.0 Benign prostatic hyperplasia without lower urinary tract symptoms; D50.9 Iron deficiency anemia, unspecified; E78.2 Mixed hyperlipidemia; Z86.718 Personal history of other venous thrombosis and embolism; Z20.822 Contact with and (suspected) exposure to COVID-19; Z79.02 Long term (current) use of antithrombotics/antiplatelets; Z95.810 Presence of automatic (implantable) cardiac defibrillator; Z96.659 Presence of unspecified artificial knee joint; Z95.5 Presence of coronary angioplasty implant and graft; Z86.711 Personal history of pulmonary embolism
CPT/HCPCS: 0223U; 36415; 43239; 78278; 80048; 80053; 82270; 82607; 82728; 82746; 83540; 83735; 83880; 84439; 84443; 84466; 85014; 85018; 85025; 85045; 86850; 86900; 86920; 93306; 93970; 94640; 94799; 99284; A9512; J1756; J1940; J2001; J2405; J7040; J7050; P9016

== ENCOUNTER 2022-10-17 16:46 | Observation (INO) | payer MEDICARE, BC ==
[~2022-10-17] VITALS: Ht 180.3 cm; Wt 88.9 kg
[2022-10-17] MEDS: SODIUM CHLORIDE 0.9% 1000ML 1,000 ML IV SCH (17:00)
[2022-10-17] MEDS ORDERED: SODIUM CHLORIDE 0.9% 250ML 250 ML IV ONE (17:00)
[2022-10-17] MEDS ORDERED: ONDANSETRON HCL INJ 2MG/ML 2ML 2 MG/ML VIAL IV PRN (17:00)
[2022-10-17 17:07] LABS: BASOPHILS % 0.7 % (0.0-1.0); EOSINOPHILS # (AUTO) 0.2 (0.0-0.4); EOSINOPHILS % 2.9 % (0.0-6.0); HEMATOCRIT 21.9 % (38.2-49.6); LYMPHOCYTES # (AUTO) 0.7 (1.0-3.2); LYMPHOCYTES % 13.1 % (18.0-39.1); MEAN CORPUSCULAR HEMOGLOBIN 26.9 pg (28-32); MEAN CORPUSCULAR HGB CONC 29.2 g/dL (31-35); MONOCYTES # (AUTO) 0.6 (0.2-0.8); MONOCYTES % 10.9 % (4.4-11.3); NEUTROPHILS % 71.9 % (38.7-80.0); PLATELET COUNT 238 x10e3/uL (140-360); RED BLOOD COUNT 2.38 x10e6/uL (4.3-5.7); RED CELL DISTRIBUTION WIDTH 19.9 % (11.7-14.4)
[2022-10-17 17:09] LABS: HEMOGLOBIN 6.4 g/dL (14.0-18.0)
[2022-10-17 17:26] LABS: ALANINE AMINOTRANSFERASE 16 IU/L (0-55); ALBUMIN 3.3 g/dL (3.5-5.0); ALBUMIN/GLOBULIN RATIO 1.2 (0.8-2.0); ALKALINE PHOSPHATASE 35 IU/L (40-150); ANION GAP 18.5 mmol/L (8-16); BLOOD UREA NITROGEN 58 mg/dL (7-26); BUN/CREATININE RATIO 15 (6-25); CALCIUM 8.6 mg/dL (8.4-10.2); CARBON DIOXIDE 22 mmol/L (22-29); CHLORIDE 104 mmol/L (98-107); CREATINE KINASE 40 IU/L (30-200); CREATININE, SERUM 3.75 mg/dL (0.72-1.25); GLUCOSE 150 mg/dL (74-118); POTASSIUM 4.5 mmol/L (3.5-5.1); SODIUM 140 mmol/L (136-145)
[2022-10-17 20:00] VITALS: BP 126/98
[2022-10-17 21:41] VITALS: BP 126/98
[2022-10-18 01:04] VITALS: BP 101/58
[2022-10-18] MEDS ORDERED: XYZAL5 MG PO (02:49)
[2022-10-18 05:27] VITALS: BP 98/52
[2022-10-18 06:34] LABS: BASOPHILS # (AUTO) 0.1 (0.0-0.1); BASOPHILS % 0.8 % (0.0-1.0); EOSINOPHILS # (AUTO) 0.2 (0.0-0.4); EOSINOPHILS % 2.4 % (0.0-6.0); HEMATOCRIT 25.1 % (38.2-49.6); HEMOGLOBIN 7.4 g/dL (14.0-18.0); LYMPHOCYTES # (AUTO) 0.8 (1.0-3.2); LYMPHOCYTES % 13.2 % (18.0-39.1); MEAN CORPUSCULAR HEMOGLOBIN 26.1 pg (28-32); MEAN CORPUSCULAR HGB CONC 29.5 g/dL (31-35); MEAN CORPUSCULAR VOLUME 88.4 fL (81-99); MONOCYTES # (AUTO) 0.8 (0.2-0.8); MONOCYTES % 12.1 % (4.4-11.3); NEUTROPHILS # (AUTO) 4.5 (2.1-6.9); PLATELET COUNT 196 x10e3/uL (140-360); RED BLOOD COUNT 2.84 x10e6/uL (4.3-5.7); RED CELL DISTRIBUTION WIDTH 21.1 % (11.7-14.4)
[2022-10-18] MEDS: SODIUM CHLORIDE 0.9% 1000ML 1,000 ML IV SCH ×2 (06:35→11:27)
[2022-10-18 06:50] LABS: ANION GAP 12.8 mmol/L (8-16); CALCIUM 8.6 mg/dL (8.4-10.2); CREATININE, SERUM 3.6 mg/dL (0.72-1.25); POTASSIUM 4.8 mmol/L (3.5-5.1)
[2022-10-18 07:39] LABS: ANISOCYTOSIS MODERATE; HYPOCHROMASIA MODERATE; MICROCYTOSIS MODERATE; PLATELET ESTIMATE ADEQUATE; PLATELET MORPHOLOGY COMMENT NORMAL; RBC MORPHOLOGY COMMENT ABNORMAL
[2022-10-18 08:16] VITALS: BP 116/71
[2022-10-18] MEDS ORDERED: FUROSEMIDE INJ 10 MG/ML 4 ML VIAL IV ONE (08:30)
[2022-10-18 09:00] VITALS: BP 116/71
[2022-10-18] MEDS ORDERED: SENNOSIDES 8.6 MG TAB PO SCH (09:00)
[2022-10-18] MEDS ORDERED: DOCUSATE SODIUM 100 MG CAP PO SCH (09:00)
[2022-10-18] MEDS ORDERED: HEPARIN SOD (PORCINE) 1000 UNIT/ML SDV ONE (09:04)
[2022-10-18 12:01] VITALS: BP 126/60
[2022-10-18 12:22] LABS: HEMATOCRIT 26.7 % (38.2-49.6)
[2022-10-18 16:59] VITALS: BP 104/72
== END 2022-10-18 19:10 | disposition home or self-care (01) ==
LOC: ER 16:53 → ERHOLD 17:03 → MED/SURG2 19:57
PROVIDERS: ADMIT Internal Medicine; ATTEND Internal Medicine
DX: K92.2 Gastrointestinal hemorrhage, unspecified (principal); I25.10 Atherosclerotic heart disease of native coronary artery without angina pectoris; Z95.5 Presence of coronary angioplasty implant and graft; Z86.718 Personal history of other venous thrombosis and embolism; Z79.01 Long term (current) use of anticoagulants; J44.9 Chronic obstructive pulmonary disease, unspecified; I50.32 Chronic diastolic (congestive) heart failure; E11.22 Type 2 diabetes mellitus with diabetic chronic kidney disease; I13.0 Hypertensive heart and chronic kidney disease with heart failure and stage 1 through stage 4 chronic kidney disease, or unspecified chronic kidney disease; N18.32 Chronic kidney disease, stage 3b; D50.9 Iron deficiency anemia, unspecified; D64.9 Anemia, unspecified; N17.9 Acute kidney failure, unspecified; D68.59 Other primary thrombophilia
CPT/HCPCS: 0223U; 36415 ×2; 36430; 71045; 78278; 80048; 80053; 82550; 82553; 84484; 85014; 85018; 85025 ×2; 86850; 86900; 86920; 93005; 94799; 99284; A9512 ×2; C9113; G0378 ×2; J1644; J1940; J2405; J7030; J7050; P9016

== ENCOUNTER 2022-11-22 11:45 | Observation (INO) | payer MEDICARE, BC ==
[~2022-11-22] VITALS: Ht 180.3 cm; Wt 88.9 kg
[~2022-11-22 11:45] MED LIST changes: +XYZAL5 MG PO
[2022-11-22] MEDS ORDERED: SODIUM CHLORIDE 0.9% 250ML 250 ML IV ONE (13:15)
[2022-11-22 13:37] LABS: BASOPHILS % 0.9 % (0.0-1.0); EOSINOPHILS # (AUTO) 0.1 (0.0-0.4); HEMATOCRIT 22.8 % (38.2-49.6); LYMPHOCYTES # (AUTO) 0.7 (1.0-3.2); LYMPHOCYTES % 14.9 % (18.0-39.1); MEAN CORPUSCULAR HEMOGLOBIN 25.6 pg (28-32); MEAN CORPUSCULAR HGB CONC 28.5 g/dL (31-35); MEAN CORPUSCULAR VOLUME 89.8 fL (81-99); MONOCYTES # (AUTO) 0.7 (0.2-0.8); MONOCYTES % 14.9 % (4.4-11.3); NEUTROPHILS # (AUTO) 2.9 (2.1-6.9); NEUTROPHILS % 66.1 % (38.7-80.0); PLATELET COUNT 287 x10e3/uL (140-360); RED BLOOD COUNT 2.54 x10e6/uL (4.3-5.7); RED CELL DISTRIBUTION WIDTH 18.2 % (11.7-14.4)
[2022-11-22 13:40] LABS: HEMOGLOBIN 6.5 g/dL (14.0-18.0)
[2022-11-22 13:51] LABS: INR 1.12; PROTHROMBIN TIME 14.9 seconds (11.9-14.5)
[2022-11-22 13:52] LABS: PARTIAL THROMBOPLASTIN TIME 28.7 seconds (23.8-35.5)
[2022-11-22 13:58] LABS: ALBUMIN 3.2 g/dL (3.5-5.0); ANION GAP 15.5 mmol/L (8-16); CALCIUM 8.7 mg/dL (8.4-10.2); CREATININE, SERUM 2.94 mg/dL (0.72-1.25); POTASSIUM 4.5 mmol/L (3.5-5.1)
[2022-11-22 14:05] LABS: CREATINE KINASE MB 1.3 ng/mL (0-5.0)
[2022-11-22] MEDS ORDERED: ONDANSETRON HCL INJ 2MG/ML 2ML 2 MG/ML VIAL IV PRN (14:15)
[2022-11-22] MEDS: FUROSEMIDE INJ 10 MG/ML 4 ML VIAL IV SCH ×2 (17:41→21:44)
[2022-11-22 17:50] VITALS: BP 131/67
[2022-11-22] MEDS ORDERED: SODIUM CHLORIDE 0.9% 250ML 250 ML ONE (18:03)
[2022-11-22 20:00] VITALS: BP 112/65
[2022-11-22] MEDS ORDERED: ALBUTEROL SULF 0.083% NEB SOLN 3 ML NEB NEB PRN (20:15)
[2022-11-22 20:30] VITALS: BP 112/65
[2022-11-22] MEDS ORDERED: IPRATROPIUM BROMIDE 0.02% 2.5 ML NEB NEB PRN ×2 (20:30)
[2022-11-22] MEDS ORDERED: CLOPIDOGREL BISULFATE 75 MG TAB PO SCH (21:00)
[2022-11-22] MEDS ORDERED: TAMSULOSIN HCL 0.4 MG CAP PO SCH (21:00)
[2022-11-22] MEDS ORDERED: PRAVASTATIN 20 MG TAB PO SCH (21:00)
[2022-11-22] MEDS: PROPRANOLOL HCL 10 MG TAB PO SCH (21:10)
[2022-11-22] MEDS ORDERED: ACETAMINOPHEN 325 MG TAB PO PRN (21:30)
[2022-11-22 22:27] VITALS: BP 112/65
[2022-11-23] VITALS: BP 101/58
[2022-11-23 04:00] VITALS: BP 109/54
[2022-11-23 06:12] LABS: BASOPHILS % 0.9 % (0.0-1.0); EOSINOPHILS # (AUTO) 0.2 (0.0-0.4); EOSINOPHILS % 3.4 % (0.0-6.0); HEMATOCRIT 26.2 % (38.2-49.6); LYMPHOCYTES # (AUTO) 0.9 (1.0-3.2); LYMPHOCYTES % 20.7 % (18.0-39.1); MEAN CORPUSCULAR HEMOGLOBIN 27.1 pg (28-32); MEAN CORPUSCULAR HGB CONC 30.5 g/dL (31-35); MEAN CORPUSCULAR VOLUME 88.8 fL (81-99); MONOCYTES # (AUTO) 0.7 (0.2-0.8); MONOCYTES % 15.1 % (4.4-11.3); NEUTROPHILS # (AUTO) 2.6 (2.1-6.9); NEUTROPHILS % 59.2 % (38.7-80.0); PLATELET COUNT 260 x10e3/uL (140-360); RED BLOOD COUNT 2.95 x10e6/uL (4.3-5.7); RED CELL DISTRIBUTION WIDTH 16.8 % (11.7-14.4)
[2022-11-23 06:38] LABS: ALBUMIN/GLOBULIN RATIO 1.1 (0.8-2.0); ANION GAP 12.9 mmol/L (8-16); CALCIUM 8.3 mg/dL (8.4-10.2); CREATININE, SERUM 2.89 mg/dL (0.72-1.25); POTASSIUM 3.9 mmol/L (3.5-5.1)
[2022-11-23 07:13] LABS: FERRITIN 57.66 ng/mL (21.81-274.66)
[2022-11-23 08:00] VITALS: BP 96/58
[2022-11-23 08:37] VITALS: BP 96/58
[2022-11-23] MEDS ORDERED: FEROSUL325 MG PO (08:57)
[2022-11-23] MEDS ORDERED: APIXAB 2.5 MG TABLET PO SCH (09:00)
[2022-11-23] MEDS ORDERED: PANTOPRAZOLE SOD 40 MG TABEC PO SCH (09:00)
[2022-11-23] MEDS ORDERED: DOCUSATE SODIUM 100 MG CAP PO SCH ×2 (09:00)
[2022-11-23] MEDS ORDERED: FUROSEMIDE 40 MG TAB PO SCH (09:00)
[2022-11-23] MEDS ORDERED: POTASSIUM CHLORIDE 10MEQ EA PO SCH (09:00)
[2022-11-23] MEDS ORDERED: FLUTICASONE PROPIONATE NASAL SPRAY NS SCH (09:00)
[2022-11-23] MEDS ORDERED: CYANOCOBALAMIN 1,000 MCG TAB PO SCH (09:00)
[2022-11-23] MEDS: PROPRANOLOL HCL 10 MG TAB PO SCH (09:00)
[2022-11-23] MEDS ORDERED: ASCORBIC ACID 500 MG TAB PO SCH (09:00)
[2022-11-23] MEDS ORDERED: SENNOSIDES 8.6 MG TAB PO SCH (09:00)
[2022-11-23] MEDS: AMIODARONE HCL 200 MG TAB PO SCH ×2 (09:06→10:50)
== END 2022-11-23 10:48 | disposition home or self-care (01) ==
LOC: ER 11:55 → ERHOLD 14:19 → MED/SURG2 17:47
PROVIDERS: ADMIT Internal Medicine; ATTEND Internal Medicine
DX: D62 Acute posthemorrhagic anemia (principal); D50.9 Iron deficiency anemia, unspecified; D68.59 Other primary thrombophilia; I13.0 Hypertensive heart and chronic kidney disease with heart failure and stage 1 through stage 4 chronic kidney disease, or unspecified chronic kidney disease; N17.9 Acute kidney failure, unspecified; N18.4 Chronic kidney disease, stage 4 (severe); I50.32 Chronic diastolic (congestive) heart failure; Z86.718 Personal history of other venous thrombosis and embolism; J44.9 Chronic obstructive pulmonary disease, unspecified; I25.10 Atherosclerotic heart disease of native coronary artery without angina pectoris; E78.5 Hyperlipidemia, unspecified; Z79.02 Long term (current) use of antithrombotics/antiplatelets; I25.2 Old myocardial infarction; Z95.810 Presence of automatic (implantable) cardiac defibrillator; Z20.822 Contact with and (suspected) exposure to COVID-19; Z79.899 Other long term (current) drug therapy; Z98.61 Coronary angioplasty status
CPT/HCPCS: 0223U; 36415 ×2; 36430; 80053 ×2; 82550; 82553; 82728; 83540; 83735; 84134; 84466; 84484; 85025 ×2; 85610; 85730; 86850; 86900; 86920; 97116; 97161; 99284; C9113; G0378 ×2; J1940; J2405; J7050; P9016; S0164

== ENCOUNTER 2022-12-20 15:38 | Inpatient (IN) | payer MEDICARE, BC ==
[~2022-12-20] VITALS: Ht 180.3 cm; Wt 88.9 kg
[~2022-12-20 15:38] MED LIST changes: +FEROSUL325 MG PO
[2022-12-20 16:56] LABS: BASOPHILS % 0.6 % (0.0-1.0); EOSINOPHILS # (AUTO) 0.2 (0.0-0.4); EOSINOPHILS % 3.1 % (0.0-6.0); LYMPHOCYTES # (AUTO) 0.6 (1.0-3.2); LYMPHOCYTES % 12.6 % (18.0-39.1); MEAN CORPUSCULAR HEMOGLOBIN 24.7 pg (28-32); MEAN CORPUSCULAR HGB CONC 28.6 g/dL (31-35); MEAN CORPUSCULAR VOLUME 86.3 fL (81-99); MONOCYTES # (AUTO) 0.6 (0.2-0.8); NEUTROPHILS # (AUTO) 3.4 (2.1-6.9); NEUTROPHILS % 70.3 % (38.7-80.0); PLATELET COUNT 235 x10e3/uL (140-360); RED BLOOD COUNT 2.19 x10e6/uL (4.3-5.7); RED CELL DISTRIBUTION WIDTH 17.6 % (11.7-14.4)
[2022-12-20 16:59] LABS: HEMATOCRIT 18.9 % (38.2-49.6); HEMOGLOBIN 5.4 g/dL (14.0-18.0)
[2022-12-20 17:15] LABS: ALBUMIN 3.4 g/dL (3.5-5.0); ALBUMIN/GLOBULIN RATIO 1.3 (0.8-2.0); ANION GAP 13.7 mmol/L (8-16); CALCIUM 8.6 mg/dL (8.4-10.2); CREATININE, SERUM 3.1 mg/dL (0.72-1.25); POTASSIUM 4.7 mmol/L (3.5-5.1)
[2022-12-20] MEDS ORDERED: ONDANSETRON HCL INJ 2MG/ML 2ML 2 MG/ML VIAL IV PRN (17:30)
[2022-12-20] MEDS ORDERED: SODIUM CHLORIDE 0.9% 250ML 250 ML IV ONE (17:30)
[2022-12-20] MEDS ORDERED: SODIUM CHLORIDE FLUSH 10 ML SYR INJ PRN (17:30)
[2022-12-20 21:00] VITALS: BP 122/59; PULSE 60; RESP 18; TEMP 97.5; O2SAT 98
[2022-12-20] MEDS ORDERED: SODIUM CHLORIDE 0.9% 250ML 250 ML ONE (22:22)
[2022-12-20 22:55] VITALS: BP 122/59; PULSE 60; RESP 18; TEMP 97.5; O2SAT 98
[2022-12-21] VITALS: BP 131/60; PULSE 60; RESP 18; TEMP 98; O2SAT 96
[2022-12-21] MEDS ORDERED: FUROSEMIDE INJ 10 MG/ML 4 ML VIAL IV ONE (02:30)
[2022-12-21 04:00] VITALS: BP 123/64; PULSE 60; RESP 18; TEMP 97.8; O2SAT 94
[2022-12-21] MEDS ORDERED: FUROSEMIDE INJ 10 MG/ML 2 ML VIAL IV ONE (06:30)
[2022-12-21 08:00] VITALS: BP 128/66; PULSE 61; RESP 17; TEMP 98.2; O2SAT 93
[2022-12-21 08:24] VITALS: BP 128/66; PULSE 61; RESP 17; TEMP 98.2; O2SAT 93
[2022-12-21] MEDS ORDERED: SODIUM CHLORIDE 0.9% 250ML 250 ML ONE (08:52)
[2022-12-21] MEDS ORDERED: ALBUTEROL/IPRATROPIUM 3 ML NEB NEB PRN (09:15)
[2022-12-21] MEDS ORDERED: ACETAMINOPHEN 325 MG TAB PO PRN (09:15)
[2022-12-21] MEDS ORDERED: SENNOSIDES 8.6 MG TAB PO SCH (10:00)
[2022-12-21] MEDS ORDERED: ASCORBIC ACID 500 MG TAB PO SCH (10:00)
[2022-12-21] MEDS ORDERED: DOCUSATE SODIUM 100 MG CAP PO SCH (10:00)
[2022-12-21] MEDS ORDERED: CYANOCOBALAMIN 1,000 MCG TAB PO SCH (10:00)
[2022-12-21 11:55] VITALS: BP 123/58; PULSE 60; RESP 18; TEMP 98.3; O2SAT 97
[2022-12-21 14:59] LABS: BASOPHILS % 0.6 % (0.0-1.0); EOSINOPHILS # (AUTO) 0.1 (0.0-0.4); HEMATOCRIT 26.9 % (38.2-49.6); HEMOGLOBIN 8.3 g/dL (14.0-18.0); LYMPHOCYTES # (AUTO) 0.6 (1.0-3.2); LYMPHOCYTES % 8.4 % (18.0-39.1); MEAN CORPUSCULAR HEMOGLOBIN 26.6 pg (28-32); MEAN CORPUSCULAR HGB CONC 30.9 g/dL (31-35); MEAN CORPUSCULAR VOLUME 86.2 fL (81-99); MONOCYTES # (AUTO) 0.8 (0.2-0.8); MONOCYTES % 11.4 % (4.4-11.3); NEUTROPHILS # (AUTO) 5.5 (2.1-6.9); NEUTROPHILS % 77.5 % (38.7-80.0); PLATELET COUNT 225 x10e3/uL (140-360); RED BLOOD COUNT 3.12 x10e6/uL (4.3-5.7); RED CELL DISTRIBUTION WIDTH 16.5 % (11.7-14.4)
[2022-12-21 15:17] LABS: ALBUMIN 3.2 g/dL (3.5-5.0); ALBUMIN/GLOBULIN RATIO 1.2 (0.8-2.0); ANION GAP 14.2 mmol/L (8-16); CALCIUM 8.4 mg/dL (8.4-10.2); POTASSIUM 4.2 mmol/L (3.5-5.1)
[2022-12-21 15:48] LABS: FERRITIN 30.16 ng/mL (21.81-274.66)
[2022-12-21 16:55] VITALS: BP 127/74; PULSE 63; RESP 16; TEMP 97.7; O2SAT 99
[2022-12-21] MEDS ORDERED: AMIODARONE HCL 200 MG TAB PO SCH (17:00)
[2022-12-21] MEDS ORDERED: MIRALAX17 GM PO (17:09)
[2022-12-21] MEDS ORDERED: ASPIRIN CHEW81 MG PO (17:09)
[2022-12-21] MEDS ORDERED: TAMSULOSIN HCL 0.4 MG CAP PO SCH (21:00)
[2022-12-21] MEDS ORDERED: PRAVASTATIN 20 MG TAB PO SCH (21:00)
== END 2022-12-21 18:30 | disposition home or self-care (01) | DRG 812 ==
LOC: ER 15:50 → ERHOLD 17:30 → MED/SURG3 20:26 → OBSVTOIN 12-21 12:00
PROVIDERS: ADMIT Internal Medicine; ATTEND Internal Medicine
PROC: 30233N1 Transfusion of Nonautologous Red Blood Cells into Peripheral Vein, Percutaneous Approach (ICD-10-PCS; principal; 2022-12-21)
DX: D50.9 Iron deficiency anemia, unspecified (principal); D68.59 Other primary thrombophilia; I13.0 Hypertensive heart and chronic kidney disease with heart failure and stage 1 through stage 4 chronic kidney disease, or unspecified chronic kidney disease; I50.32 Chronic diastolic (congestive) heart failure; N18.4 Chronic kidney disease, stage 4 (severe); N17.9 Acute kidney failure, unspecified; Q27.39 Arteriovenous malformation, other site; D63.8 Anemia in other chronic diseases classified elsewhere; K55.20 Angiodysplasia of colon without hemorrhage; M19.90 Unspecified osteoarthritis, unspecified site; E78.5 Hyperlipidemia, unspecified; I25.2 Old myocardial infarction; J44.9 Chronic obstructive pulmonary disease, unspecified; I25.10 Atherosclerotic heart disease of native coronary artery without angina pectoris; Z95.5 Presence of coronary angioplasty implant and graft; Z86.711 Personal history of pulmonary embolism; Z86.718 Personal history of other venous thrombosis and embolism; Z20.822 Contact with and (suspected) exposure to COVID-19; Z86.16 Personal history of COVID-19; Z79.02 Long term (current) use of antithrombotics/antiplatelets
CPT/HCPCS: 0223U; 36415; 71045; 80053; 82607; 82728; 83540; 84466; 85025; 86850; 86900; 86920; 93005; 99284; G0378; J1940; J7050; P9016

== ENCOUNTER → 2023-01-22 | Outpatient (CLI) | payer MEDICARE, BC ==
[~2023-01-22] MED LIST changes: +ASPIRIN CHEW81 MG PO; +MIRALAX17 GM PO
== END ==
LOC: CT 12:42
PROVIDERS: ATTEND Internal Medicine
DX: R06.09 Other forms of dyspnea (principal)
CPT/HCPCS: 71250

== ENCOUNTER → 2023-06-04 | Day surgery (SDC) | payer MEDICARE, BC ==
[2023-05-30 13:20] LABS: BASOPHILS # (AUTO) 0.1 (0.0-0.1); BASOPHILS % 1.1 % (0.0-1.0); EOSINOPHILS # (AUTO) 0.2 (0.0-0.4); EOSINOPHILS % 2.8 % (0.0-6.0); HEMATOCRIT 37.1 % (38.2-49.6); HEMOGLOBIN 11.8 g/dL (14.0-18.0); LYMPHOCYTES # (AUTO) 0.8 (1.0-3.2); LYMPHOCYTES % 11.8 % (18.0-39.1); MEAN CORPUSCULAR HEMOGLOBIN 29.6 pg (28-32); MEAN CORPUSCULAR HGB CONC 31.8 g/dL (31-35); MONOCYTES # (AUTO) 0.8 (0.2-0.8); MONOCYTES % 10.5 % (4.4-11.3); NEUTROPHILS # (AUTO) 5.2 (2.1-6.9); NEUTROPHILS % 73.2 % (38.7-80.0); PLATELET COUNT 193 x10e3/uL (140-360); RED BLOOD COUNT 3.99 x10e6/uL (4.3-5.7); WHITE BLOOD COUNT 7.13 x10e3/uL (4.8-10.8)
[~2023-06-04] MED LIST changes: +ANORO ELLIPTA1 EACH; +FENTANYL CITRATE/PF 100MCG/2 ML INJ ONE; +HYDROCODON-ACE1 EA11 PO; +LACTATED RINGER'S 1,000 ML ONE; +LEVOTHYROXINE50 MCG PO; +LEXAPRO5 MG PO; +MIDAZOLAM HCL 2 MG/2 ML VIAL ONE; +OR PHACO EYE KIT ONE; +PREOP PHACO EYE KIT ONE
[2023-06-04 10:25] VITALS: BP 155/89; PULSE 60; RESP 14; O2SAT 98
== END | disposition home or self-care (01) ==
LOC: OR 07:24
PROVIDERS: ATTEND Ophthalmology
DX: H25.12 Age-related nuclear cataract, left eye (principal); H57.09 Other anomalies of pupillary function; I25.10 Atherosclerotic heart disease of native coronary artery without angina pectoris; I50.9 Heart failure, unspecified; G47.33 Obstructive sleep apnea (adult) (pediatric); J44.9 Chronic obstructive pulmonary disease, unspecified; E03.9 Hypothyroidism, unspecified; N40.0 Benign prostatic hyperplasia without lower urinary tract symptoms; N28.9 Disorder of kidney and ureter, unspecified; D68.59 Other primary thrombophilia; D64.9 Anemia, unspecified; Z01.812 Encounter for preprocedural laboratory examination; Z79.02 Long term (current) use of antithrombotics/antiplatelets; Z79.82 Long term (current) use of aspirin; Z79.899 Other long term (current) drug therapy; Z86.718 Personal history of other venous thrombosis and embolism; Z86.74 Personal history of sudden cardiac arrest; Z95.810 Presence of automatic (implantable) cardiac defibrillator; Z95.5 Presence of coronary angioplasty implant and graft; Z87.891 Personal history of nicotine dependence
CPT/HCPCS: 36415; 66982; 85025; J2250; J3010; J7121; V2632

== ENCOUNTER 2023-07-02 09:48 | Outpatient (RCR) | payer MEDICARE, BC ==
[~2023-07-02 09:48] MED LIST changes: -FENTANYL CITRATE/PF 100MCG/2 ML INJ ONE; -LACTATED RINGER'S 1,000 ML ONE; -MIDAZOLAM HCL 2 MG/2 ML VIAL ONE; -OR PHACO EYE KIT ONE; -PREOP PHACO EYE KIT ONE
== END 2023-07-04 ==
LOC: ST 09:48
PROVIDERS: ATTEND Otolaryngology
DX: R49.0 Dysphonia (principal)

== ENCOUNTER 2023-12-03 14:09 | Inpatient (IN) | payer MEDICARE, BC ==
[~2023-12-03] VITALS: Ht 180.3 cm; Wt 83.9 kg
[~2023-12-03 14:09] MED LIST changes: +ALBUTEROL2.5 MG/3 M INH; +FAMOTIDINE20 MG PO; +IPRATROPIU0.2 MG/1 M INH; +LORATADINE10 MG PO; +MUCINEX DM ER1 EACH PO; +OMEGA 3 1,0001 EACH PO; +OXYBUTYNIN CHLOR5 MG PO; +STOOL SOFTENER100 M1 PO; +vit b12 PO; +vit c PO; +vit d PO
[2023-12-03 15:43] LABS: BASOPHILS # (AUTO) 0.1 (0.0-0.1); BASOPHILS % 0.9 % (0.0-1.0); EOSINOPHILS # (AUTO) 0.2 (0.0-0.4); EOSINOPHILS % 3.4 % (0.0-6.0); LYMPHOCYTES # (AUTO) 0.7 (1.0-3.2); LYMPHOCYTES % 12.2 % (18.0-39.1); MEAN CORPUSCULAR HEMOGLOBIN 27.9 pg (28-32); MEAN CORPUSCULAR HGB CONC 31.2 g/dL (31-35); MEAN CORPUSCULAR VOLUME 89.6 fL (81-99); MONOCYTES # (AUTO) 0.6 (0.2-0.8); MONOCYTES % 11.7 % (4.4-11.3); NEUTROPHILS # (AUTO) 3.8 (2.1-6.9); NEUTROPHILS % 71.6 % (38.7-80.0); PLATELET COUNT 279 x10e3/uL (140-360); RED BLOOD COUNT 2.22 x10e6/uL (4.3-5.7); RED CELL DISTRIBUTION WIDTH 16.2 % (11.7-14.4); WHITE BLOOD COUNT 5.31 x10e3/uL (4.8-10.8)
[2023-12-03 15:46] LABS: HEMATOCRIT 19.9 % (38.2-49.6); HEMOGLOBIN 6.2 g/dL (14.0-18.0)
[2023-12-03] MEDS: SODIUM CHLORIDE 0.9% 250ML 250 ML IV ONE (15:52)
[2023-12-03 15:58] LABS: ALBUMIN 3.3 g/dL (3.5-5.0); ALBUMIN/GLOBULIN RATIO 1.1 (0.8-2.0); ANION GAP 16.2 mmol/L (8-16); BILIRUBIN,TOTAL 0.5 mg/dL (0.2-1.2); CALCIUM 8.8 mg/dL (8.4-10.2); CREATININE, SERUM 2.49 mg/dL (0.72-1.25); POTASSIUM 4.2 mmol/L (3.5-5.1); TOTAL PROTEIN 6.2 g/dL (6.5-8.1)
[2023-12-03 16:05] LABS: TROPONIN I 0.051 ng/mL (0-0.300)
[2023-12-03] MEDS ORDERED: SODIUM CHLORIDE FLUSH 10 ML SYR INJ PRN (17:00)
[2023-12-03] MEDS ORDERED: ONDANSETRON HCL INJ 2MG/ML 2ML 2 MG/ML VIAL IV PRN (17:00)
[2023-12-03 17:02] VITALS: PULSE 62; RESP 18; O2SAT 98
[2023-12-03] MEDS ORDERED: SODIUM CHLORIDE 0.9% 250ML 250 ML ONE (18:22)
[2023-12-03 19:42] VITALS: BP 106/55; PULSE 61; RESP 20; TEMP 98.3
[2023-12-03 20:45] VITALS: BP 106/55; PULSE 62; RESP 21; TEMP 98.3; O2SAT 93
[2023-12-03] MEDS ORDERED: FUROSEMIDE INJ 10 MG/ML 4 ML VIAL IV PRN (21:00)
[2023-12-03 21:19] VITALS: BP 106/55; PULSE 62; RESP 21; TEMP 98.3; O2SAT 93
[2023-12-03] MEDS: FUROSEMIDE INJ 10 MG/ML 4 ML VIAL IV ONE (21:56)
[2023-12-03 23:51] VITALS: BP 103/51; PULSE 60; RESP 18; TEMP 98.4; O2SAT 95
[2023-12-04] VITALS (7 sets, daily range): BP systolic 122–151; BP diastolic 58–84; PULSE 60–66; RESP 17–22; TEMP 97.8–98.2; O2SAT 92–98
[2023-12-04] MEDS: FUROSEMIDE INJ 10 MG/ML 4 ML VIAL IV ONE (00:53)
[2023-12-04] MEDS: SODIUM CHLORIDE 0.9% 250ML 250 ML ONE (00:54)
[2023-12-04 06:44] LABS: BASOPHILS # (AUTO) 0.1 (0.0-0.1); BASOPHILS % 1.1 % (0.0-1.0); EOSINOPHILS # (AUTO) 0.2 (0.0-0.4); EOSINOPHILS % 4.3 % (0.0-6.0); HEMOGLOBIN 8.2 g/dL (14.0-18.0); LYMPHOCYTES # (AUTO) 0.8 (1.0-3.2); LYMPHOCYTES % 13.5 % (18.0-39.1); MEAN CORPUSCULAR HGB CONC 32.8 g/dL (31-35); MEAN CORPUSCULAR VOLUME 85.3 fL (81-99); MONOCYTES # (AUTO) 0.7 (0.2-0.8); MONOCYTES % 12.9 % (4.4-11.3); NEUTROPHILS # (AUTO) 3.8 (2.1-6.9); PLATELET COUNT 233 x10e3/uL (140-360); RED BLOOD COUNT 2.93 x10e6/uL (4.3-5.7); RED CELL DISTRIBUTION WIDTH 15.9 % (11.7-14.4); WHITE BLOOD COUNT 5.57 x10e3/uL (4.8-10.8)
[2023-12-04 06:55] LABS: INR 0.94; PROTHROMBIN TIME 13.3 seconds (11.9-14.5)
[2023-12-04 06:56] LABS: PARTIAL THROMBOPLASTIN TIME 30.1 seconds (23.8-35.5)
[2023-12-04 07:14] LABS: ALBUMIN/GLOBULIN RATIO 1.1 (0.8-2.0); ANION GAP 16.7 mmol/L (8-16); CALCIUM 8.5 mg/dL (8.4-10.2); CREATININE, SERUM 2.58 mg/dL (0.72-1.25); POTASSIUM 3.7 mmol/L (3.5-5.1); TOTAL PROTEIN 5.8 g/dL (6.5-8.1)
[2023-12-04 07:44] LABS: TROPONIN I 0.029 ng/mL (0-0.300)
[2023-12-04] MEDS ORDERED: HEPARIN SOD (PORCINE) 1000 UNIT/ML SDV ONE (08:34)
[2023-12-04] MEDS ORDERED: ACETAMINOPHEN 325 MG TAB PO PRN (14:30)
[2023-12-04 15:10] LABS: TROPONIN I 0.047 ng/mL (0-0.300)
[2023-12-04] MEDS: ACETYLCYSTEINE 200 MG/ML 4 ML VIAL PO SCH (15:42)
[2023-12-04 17:35] LABS: HEMATOCRIT 24.1 % (38.2-49.6)
[2023-12-04] MEDS: SODIUM CHLORIDE 0.9% 1000ML 1,000 ML IV SCH (18:18)
[2023-12-05] VITALS (35 sets, daily range): BP systolic 112–165; BP diastolic 44–83; PULSE 59–92; RESP 11–30; TEMP 97.8–98.2; O2SAT 80–100
[2023-12-05 07:00] LABS: BASOPHILS # (AUTO) 0.1 (0.0-0.1); EOSINOPHILS # (AUTO) 0.3 (0.0-0.4); EOSINOPHILS % 4.9 % (0.0-6.0); HEMATOCRIT 25.2 % (38.2-49.6); HEMOGLOBIN 8.1 g/dL (14.0-18.0); LYMPHOCYTES # (AUTO) 0.5 (1.0-3.2); LYMPHOCYTES % 8.5 % (18.0-39.1); MEAN CORPUSCULAR HGB CONC 32.1 g/dL (31-35); MEAN CORPUSCULAR VOLUME 87.2 fL (81-99); MONOCYTES # (AUTO) 0.7 (0.2-0.8); MONOCYTES % 12.6 % (4.4-11.3); NEUTROPHILS # (AUTO) 4.2 (2.1-6.9); NEUTROPHILS % 72.5 % (38.7-80.0); PLATELET COUNT 241 x10e3/uL (140-360); RED BLOOD COUNT 2.89 x10e6/uL (4.3-5.7); RED CELL DISTRIBUTION WIDTH 15.9 % (11.7-14.4); WHITE BLOOD COUNT 5.86 x10e3/uL (4.8-10.8)
[2023-12-05 07:22] LABS: ALBUMIN 2.9 g/dL (3.5-5.0); ALBUMIN/GLOBULIN RATIO 1.1 (0.8-2.0); ANION GAP 13.8 mmol/L (8-16); BILIRUBIN,TOTAL 0.8 mg/dL (0.2-1.2); CALCIUM 8.8 mg/dL (8.4-10.2); CREATININE, SERUM 2.28 mg/dL (0.72-1.25); MAGNESIUM 2.1 MG/DL (1.3-2.1); POTASSIUM 3.8 mmol/L (3.5-5.1); TOTAL PROTEIN 5.6 g/dL (6.5-8.1)
[2023-12-05] MEDS: FUROSEMIDE INJ 10 MG/ML 4 ML VIAL IV SCH (08:23)
[2023-12-05] MEDS ORDERED: SODIUM CHLORIDE 0.9% 100 ML ONE (10:37)
[2023-12-05] MEDS ORDERED: IOPAMIDOL 370 MG/ML 100 ML INFUS..BTL INJ ONE (10:37)
[2023-12-05 16:25] LABS: HEMOGLOBIN 8.6 g/dL (14.0-18.0)
[2023-12-05] MEDS: METOPROLOL SUCCINATE 25 MG TAB XL PO SCH (16:54)
[2023-12-06] VITALS: BP 114/52; PULSE 65; RESP 18; TEMP 98.5; O2SAT 97
[2023-12-06 04:00] VITALS: BP 143/63; PULSE 62; RESP 18; TEMP 98.2; O2SAT 98
[2023-12-06 05:36] LABS: BASOPHILS # (AUTO) 0.1 (0.0-0.1); BASOPHILS % 1.2 % (0.0-1.0); EOSINOPHILS # (AUTO) 0.3 (0.0-0.4); EOSINOPHILS % 5.7 % (0.0-6.0); HEMATOCRIT 27.6 % (38.2-49.6); HEMOGLOBIN 8.8 g/dL (14.0-18.0); LYMPHOCYTES # (AUTO) 0.7 (1.0-3.2); MEAN CORPUSCULAR HEMOGLOBIN 28.3 pg (28-32); MEAN CORPUSCULAR HGB CONC 31.9 g/dL (31-35); MEAN CORPUSCULAR VOLUME 88.7 fL (81-99); MONOCYTES # (AUTO) 0.8 (0.2-0.8); MONOCYTES % 12.8 % (4.4-11.3); PLATELET COUNT 204 x10e3/uL (140-360); RED BLOOD COUNT 3.11 x10e6/uL (4.3-5.7); RED CELL DISTRIBUTION WIDTH 16.1 % (11.7-14.4); WHITE BLOOD COUNT 5.94 x10e3/uL (4.8-10.8)
[2023-12-06 06:33] LABS: ANION GAP 15.7 mmol/L (8-16); CALCIUM 8.8 mg/dL (8.4-10.2); CREATININE, SERUM 2.19 mg/dL (0.72-1.25); MAGNESIUM 2.1 MG/DL (1.3-2.1); POTASSIUM 3.7 mmol/L (3.5-5.1)
[2023-12-06 07:00] VITALS: BP 130/74; PULSE 80; RESP 15; TEMP 98.1; O2SAT 98
[2023-12-06 08:00] VITALS: BP 144/71; PULSE 60; RESP 18; TEMP 98.2; O2SAT 94
[2023-12-06 09:00] VITALS: BP 142/76; PULSE 81
[2023-12-06] MEDS: PANTOPRAZOLE SOD 40 MG TABEC PO SCH (10:39)
[2023-12-06] MEDS ORDERED: TOPROL XL25 MG PO (11:04)
== END 2023-12-06 12:28 | disposition home or self-care (01) | DRG 811 ==
LOC: ER 14:19 → ERHOLD 16:51 → MED/SURG3 20:06 → OBSVTOIN 12-04 14:18 → ICU 12-04 14:39 → MED/SURG 12-05 18:25
PROVIDERS: ADMIT Internal Medicine; ATTEND Internal Medicine
PROC: 30233N1 Transfusion of Nonautologous Red Blood Cells into Peripheral Vein, Percutaneous Approach (ICD-10-PCS; principal; 2023-12-03)
DX: D62 Acute posthemorrhagic anemia (principal); K31.811 Angiodysplasia of stomach and duodenum with bleeding; D68.59 Other primary thrombophilia; I13.0 Hypertensive heart and chronic kidney disease with heart failure and stage 1 through stage 4 chronic kidney disease, or unspecified chronic kidney disease; I50.32 Chronic diastolic (congestive) heart failure; N18.4 Chronic kidney disease, stage 4 (severe); N17.9 Acute kidney failure, unspecified; I47.20 Ventricular tachycardia, unspecified; J44.9 Chronic obstructive pulmonary disease, unspecified; M19.91 Primary osteoarthritis, unspecified site; I25.10 Atherosclerotic heart disease of native coronary artery without angina pectoris; Z95.5 Presence of coronary angioplasty implant and graft; Z95.810 Presence of automatic (implantable) cardiac defibrillator; Z86.718 Personal history of other venous thrombosis and embolism; Z95.828 Presence of other vascular implants and grafts; Z85.828 Personal history of other malignant neoplasm of skin; C61 Malignant neoplasm of prostate; I35.0 Nonrheumatic aortic (valve) stenosis; Z87.891 Personal history of nicotine dependence; Z86.711 Personal history of pulmonary embolism; Z11.52 Encounter for screening for COVID-19; Z86.16 Personal history of COVID-19; Z79.899 Other long term (current) drug therapy; Z79.02 Long term (current) use of antithrombotics/antiplatelets
CPT/HCPCS: 36415; 71045; 74174; 74176; 78278; 80048; 80053; 82550; 83690; 83735; 83880; 84484; 85014; 85018; 85025; 85610; 85730; 86850; 86900; 86920; 93005; 94799; 99252; 99284; A9512; G0378; J1644; J1940; J7030; J7050; P9016; Q9967; U0002